=== PATIENT | male | born 1995 | race Caucasian/White ===

== ENCOUNTER 2020-04-06 11:04 | Emergency (ER) | payer SELFPAY ==
[2020-04-06 11:22] VITALS: BP 142/76; PULSE 89; RESP 18; TEMP 37.2; O2SAT 99; BMI 22.7
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
[2020-04-06 12:03] VITALS: BP 142/76; PULSE 89; RESP 18; TEMP 37.2; O2SAT 99
== END 2020-04-06 12:06 | disposition home or self-care (01) ==
PROVIDERS: Emergency Provider Nurse Practitioner
DX: Z20.828 Contact with and (suspected) exposure to other viral communicable diseases (principal)
CPT/HCPCS: 99201; U0003

== ENCOUNTER 2020-09-22 22:26 | Emergency (ER) | payer OTHER, SELFPAY ==
[2020-09-22 22:27] VITALS: BP 131/75; PULSE 89; RESP 18; O2SAT 98; BMI 20.5
[2020-09-22 22:56] VITALS: BP 130/76; PULSE 90; RESP 18; TEMP 37; O2SAT 99
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
[2020-09-22 23:16] LABS: Basophils % 0.5 % (0.1-2.0); Eosinophils # 0.1 K/mm3 (0.0-0.4); Eosinophils % 0.8 % (0.1-12.0); Hematocrit 43.2 % (42.0-52.0); Hemoglobin 14.2 g/dL (14.1-18.0); Lymphocytes # 2.4 K/mm3 (0.7-4.5); Lymphocytes % 33.2 % (10-50); Mean Corpuscular HGB Conc 32.7 g/dL (31.8-35.4); Mean Corpuscular Hemoglobin 28.8 pg (27.0-31.2); Mean Platelet Volume 8.3 fl (7.4-10.4); Monocytes # 0.5 K/mm3 (0.1-1.0); Monocytes % 7.2 % (1.7-9.3); Neutrophils # 4.3 K/mm3 (1.8-7.8); Neutrophils % 58.4 % (37.0-80.0); Platelet Count 269 K/mm3 (142-424); Red Blood Count 4.91 M/mm3 (4.60-6.20); Red Cell Distribution Width 12.8 % (11.5-17.5); White Blood Count 7.3 K/mm3 (4.8-10.8)
[2020-09-22 23:17] LABS: Ethyl Alcohol 14 mg/dl (0-10)
[2020-09-22 23:18] LABS: Alanine Aminotransferase 20 U/L (12-78); Albumin Level 5.1 g/dl (3.5-5.0); Albumin/Globulin Ratio 1.5 (1.1-1.8); Alkaline Phosphatase 68 U/L (38-126); Amylase 71 U/L (30-110); Anion Gap 13.1 mEq/L (5-15); Aspartate Amino Transferase 32 U/L (17-59); Bilirubin,Total 0.3 mg/dl (0.2-1.3); Blood Urea Nitrogen 12 mg/dl (9-20); Calcium 9.6 mg/dl (8.4-10.2); Carbon Dioxide 26 mmol/L (22.0-30.0); Chloride 105 mmol/L (98-107); Creatinine Clearance Estimated 109 mL/min (50-200); Estimated Glomerular Filt Rate 103 ml/min (>60); GFR (African American) 124 ML/MIN (>60); Globulin 3.4 g/dL (1.3-3.2); Glucose 95 mg/dl (74-100); Lipase 84 U/L (23-300); Potassium 3.1 mmoL/L (3.5-5.1); Sodium 141 mmol/L (136-145); Total Protein,Serum 8.5 g/dl (6.3-8.2)
[2020-09-22 23:23] LABS: C-Reactive Protein 1.8 mg/L (0-4)
[2020-09-22 23:34] LABS: Appearance,Urine CLEAR (Clear); Bilirubin,Urine Negative (Negative); Blood, Urine Negative (Negative); Color,Urine YELLOW (Yellow); Glucose,Urine (UA) Negative (Negative); Ketones,Urine Negative (Negative); Leukocyte Esterase,Urine Negative (Negative); Microscopic, Urine URINE MICROSCOPIC (MICROSCOPIC); Nitrate,Urine Negative (Negative); PH,Urine 6.5 (5.0-8.5); Protein,Urine Negative (Negative); Urobilinogen,Urine 0.2 EU/dl (0.2)
[2020-09-22 23:34] LABS: Procalcitonin 0.035 ng/mL (0.0-2.0)
[2020-09-22 23:48] LABS: WBC,Urine Occasional #/hpf (0-3)
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
[2020-09-23 00:06] LABS: Erythrocyte Sedimentation Rate 8 mm/hr (0-15)
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
[2020-09-23 01:00] VITALS: BP 137/81; PULSE 79; O2SAT 100
[2020-09-23 01:27] VITALS: BP 137/81; PULSE 87; RESP 18; TEMP 36.9; O2SAT 99
[2020-11-04 12:36] LABS: POC Glucose,Bedside 115 (70-110)
== END 2020-09-23 01:31 | disposition home or self-care (01) ==
PROVIDERS: Emergency Provider Emergency Medicine
DX: S06.0X0A Concussion without loss of consciousness, initial encounter (principal); S39.91XA Unspecified injury of abdomen, initial encounter; T07.XXXA Unspecified multiple injuries, initial encounter; V47.0XXA Car driver injured in collision with fixed or stationary object in nontraffic accident, initial encounter; Y92.488 Other paved roadways as the place of occurrence of the external cause
CPT/HCPCS: 70450; 71045; 72125; 73521; 73552; 73562; 73590; 73610; 73630; 74177; 80053; 81001; 82150; 82962; 83690; 84145; 85025; 85651; 86140; 99291; Q9967

== ENCOUNTER 2021-05-20 10:37 | Emergency (ER) | payer OTHER, SELFPAY ==
--- NOTE | 2021-05-20 10:37 | ECG_ITS ---
APPROVED REPORT Exam: Resting ECG HR:68 bpm ECG Measurements Heart Rate 68 AXES AL 120 P 1 QRSd 94 QRS 90 QT 378 T 44 QTc 401 Conclusion Normal sinus rhythm Rightward axis Incomplete right bundle branch block Borderline ECG Electronically signed by : José Palomares MD 05/21/2021 13:25:00
--- NOTE | 2021-05-20 10:41 | XR_ITS ---
PROCEDURE: XR CHEST PORTABLE CLINICAL HISTORY: cp COMPARISON: No exams were available for comparison FINDINGS: The cardiomediastinal silhouette and pulmonary vascularity are within normal limits. The lungs are clear without infiltrates, suspicious nodules, or pleural effusions. No acute bony abnormalities. IMPRESSION: No acute findings. Dictated by: Errol Alejandre MD 05/20/2021 11:38 Errol Alejandre MD in [facility] 05/20/2021 11:38
[2021-05-20 10:42] VITALS: BMI 24.2
--- NOTE | 2021-05-20 10:42 | HMH.EDCP ---
ED Disposition Clinical Impression: Atypical chest pain Disposition: Home, Self-Care Condition on Discharge: Good Instructions: DI for Atypical Chest Pain Additional Instructions: follow up PCP, return for worse Time of Disposition: 11:19 - Critical Care Critical Care Time: No Attestation: On , the high probability of a clinically significant, sudden or life threatening deterioration of the following system(s) required my full and direct attention, intervention and personal management. The time I documented below is in addition to time spent performing reported procedures but includes the following listed in this critical care notation. Medical Decision Making - Medical Records Medical records reviewed: Yes: I reviewed the patient's medical records. - Miguel Inquiry Pt receiving controlled substance: No Vital Signs: 05/20/21 10:49 05/20/21 11:00 Temperature 98.5 F Temperature Source Oral Pulse Rate 71 Pulse Rate [Left Radial] 69 Respiratory Rate 16 Blood Pressure 118/73 Blood Pressure [Right Arm] 139/81 Blood Pressure Mean [Right Arm] 100 Blood Pressure Source Automatic Cuff Blood Pressure Position Sitting 02 Sat by Pulse Oximetry 100 100 Oxygen Delivery Method Room Air Room Air - Lab Data Lab Results 05/20/21 10:41: WBC 5.5, RBC 5.25, Hgb 15.4, Hct 47.6, MCV 90.7, MCH 29.3, MCHC 32.3, RDW 13.3, Plt Count 274, MPV 8.9, Neut % (Auto) 66.5, Lymph % (Auto) 22.4, [place] % (Auto) 7.0, Eos % (Auto) 2.9, Baso % (Auto) 1.2, Neut # (Auto) 3.7, Lymph # (Auto) 1.2, [place] # (Auto) 0.4, Eos # (Auto) 0.2, Baso # (Auto) 0.1 05/20/21 10:41: Sodium 139, Potassium 3.9, Chloride 101, Carbon Dioxide 29, Anion Gap 12.9, BUN 17, Creatinine 0.80, Estimated Creat Clear 136, Estimated GFR 118, Est GFR ( Amer) 143, Glucose 104 H, Calcium 10.0, Total Bilirubin 0.4, AST 28, ALT 22, Alkaline Phosphatase 63, Troponin I < 0.01, Total Protein 8.2, Albumin 4.8, Globulin 3.4 H, Albumin/Globulin Ratio 1.4 Result diagrams: 05/20/21 10:41 05/20/21 10:41 Orders (Tests/Meds): ED MEDICATIONS Discontinued Medications Generic Name Dose Route Start Last Admin Trade Name [place] PREmely Reason Stop Dose Admin Aspirin 325 mg 05/20/21 10:41 05/20/21 10:47 Aspirin 325mg Tablet PO 05/20/21 10:42 Not Given ONCE ONE Aspirin 324 mg 05/20/21 10:46 05/20/21 10:47 Aspirin 81mg Chewable Tablet PO 05/20/21 10:47 324 mg ONCE ONE Administration ORDERS Category Date Time Status XR chest portable Stat Exams 05/20/21 10:41 Taken Troponin I Q3H Lab 05/20/21 13:45 Ordered Troponin I Q3H Lab 05/20/21 16:45 Ordered - ECG Data Tracing #1 ekg by ia nsr, irbbb, no st elev Chest Pain HPI - General Chief Complaint: Chest Pain Stated Complaint: chest pain Time Seen by Provider: 05/20/21 10:42 Mode of Arrival: Ambulatory Source of Information: Patient Limitations: No Limitations - History of Present Illness HPI narrative: says he woke up with nonspecific left sided cp this am, says he has been to his pcp for heart pain before Onset (ago): hour(s) Duration: intermittent Activity at onset: during rest Pain location: left chest Severity: moderate Pain radiation: none Relieving factors: nothing Exacerbating factors: nothing - Related Data Home Medications Medication Instructions Recorded Confirmed No Known Home Medications 09/22/20 09/22/20 Allergies Allergy/AdvReac Type Severity Reaction Status Date / Time No Known Allergies Allergy Verified 03/26/18 17:22 [facility] History - Hepatitis A Screen Attestation statement:: This patient has been screened for Hepatitis A risk factors. Medical History: Denies:: Cancer, Chronic Obstructive Pulmonary Disease (COPD), MRSA - Social History Smoking Status: Never smoker Alcohol Intake: never Occupational Status: employed Housing: house ROS Obtained: Yes All systems reviewed & no additional complaints Physical Exam
[2021-05-20 10:49] VITALS: BP 139/81; PULSE 69; RESP 16; TEMP 36.9; O2SAT 100; BMI 24.2
[2021-05-20 10:49] LABS: Basophils # 0.1 K/mm3 (0-0.2); Basophils % 1.2 % (0.1-2.0); Eosinophils # 0.2 K/mm3 (0.0-0.4); Eosinophils % 2.9 % (0.1-12.0); Hematocrit 47.6 % (42.0-52.0); Hemoglobin 15.4 g/dL (14.1-18.0); Lymphocytes # 1.2 K/mm3 (0.7-4.5); Lymphocytes % 22.4 % (10-50); Mean Corpuscular HGB Conc 32.3 g/dL (31.8-35.4); Mean Corpuscular Hemoglobin 29.3 pg (27.0-31.2); Mean Corpuscular Volume 90.7 fl (80-94); Mean Platelet Volume 8.9 fl (7.4-10.4); Monocytes # 0.4 K/mm3 (0.1-1.0); Neutrophils # 3.7 K/mm3 (1.8-7.8); Neutrophils % 66.5 % (37.0-80.0); Platelet Count 274 K/mm3 (142-424); Red Blood Count 5.25 M/mm3 (4.60-6.20); Red Cell Distribution Width 13.3 % (11.5-17.5); White Blood Count 5.5 K/mm3 (4.8-10.8)
[2021-05-20 10:54] LABS: Chloride 101 mmol/L (98-107); Sodium 139 mmol/L (136-145)
[2021-05-20 10:57] LABS: Alanine Aminotransferase 22 U/L (12-78); Alkaline Phosphatase 63 U/L (38-126); Aspartate Amino Transferase 28 U/L (17-59); Bilirubin,Total 0.4 mg/dl (0.2-1.3); Blood Urea Nitrogen 17 mg/dl (9-20); Carbon Dioxide 29 mmol/L (22.0-30.0); Creatinine Clearance Estimated 136 mL/min (50-200); Estimated Glomerular Filt Rate 118 ml/min (>60); GFR (African American) 143 ML/MIN (>60); Glucose 104 mg/dl (74-100)
[2021-05-20 10:58] LABS: Anion Gap 12.9 mEq/L (5-15); Potassium 3.9 mmoL/L (3.5-5.1)
[2021-05-20 11:00] VITALS: BP 118/73; PULSE 71; O2SAT 100
[2021-05-20 11:00] LABS: Albumin Level 4.8 g/dl (3.5-5.0); Albumin/Globulin Ratio 1.4 (1.1-1.8); Globulin 3.4 g/dL (1.3-3.2); Total Protein,Serum 8.2 g/dl (6.3-8.2)
[2021-05-20 11:14] LABS: Troponin I < 0.01 ng/ml (0.00-0.034)
[2021-05-20 11:25] VITALS: BP 118/73; PULSE 69; RESP 17; TEMP 36.9; O2SAT 99
== END 2021-05-20 11:26 | disposition home or self-care (01) ==
PROVIDERS: Emergency Provider Emergency Medicine; PCP Family Medicine
DX: R07.89 Other chest pain (principal)
CPT/HCPCS: 71045; 80053; 84484; 85025; 93005; 99283

== ENCOUNTER 2021-05-22 11:38 | Emergency (ER) | payer OTHER, SELFPAY ==
[2021-05-22 13:15] VITALS: BP 117/70; PULSE 75; RESP 18; TEMP 36.8; O2SAT 99; BMI 23.5
--- NOTE | 2021-05-22 13:53 | HMH.EDUTC ---
[facility] [place] Disposition Clinical Impression: Strep throat Disposition: Home, Self-Care Condition on Discharge: Good Instructions: DI for Strep Throat, Strep Throat, Amoxicillin Additional Instructions: *Monitor Temp, Over the counter Motrin or Tylenol as directed/as needed Tylenol every 4 hours and Motrin every 6 hours (as long as your family doctor has told you that you can take it) for fever or pain. and straight to ER if unable to lower temp less than 101.0 after medication given *Warm salt water gargles may help to soothe the throat *Throat Lozenges *Warm fluids like tea with honey may help to soothe the throat *Sleep elevated *Humidifier/Vaporizer *If you did not take Penicillin shot or was unable to, start taking antibiotic immediately and make sure that you take it for the FULL length of time although you should start to feel better in 24-48 hours *change toothbrush and toothpaste 24-48 hours after starting to take antibiotics so you do not reinfect yourself Monitor Temp. Tylenol and/or Ibuprofen as needed. ER if fever is no less than 101 despite alternating Tylenol and Ibuprofen * Encourage fluids, water, Gatorade, powerade, pedialyte if /toddler/or child *Cold fluids, popsicles and ice cream may feel good on his throat Follow up IMMEDIATELY for new or worsening symptoms or no Noticeable improvement over the next 48-72 hours. 911 for difficulty breathing or swallowing You were tested for today for COVID19 your test result should be back in the next 24-48 hours, you may check your results on the [facility] My Health Portal if you have trouble logging on you may call You was given a handout with instructions for Self Quarantine and Self isolation for while you wait on test results and what to do if they are positive If you are positive the Health Dept will be contacting you also Make sure to take your Vitamins Vit. C Vit D and Zinc if you can take them Prescriptions: Amoxicillin [Amoxicillin 500mg Cap] 500 mg PO TID #30 cap Transmission Status: Pending to [facility] Ondansetron [Zofran 4mg ODT] 4 mg PO TIDP PRN #12 tab PRN Reason: Nausea Transmission Status: Pending to [facility] Referrals: Kristin Baltazar DO [Primary Care Provider] - As needed Forms: Work/School Release Time of Disposition: 14:17 Medical Decision Making - Miguel Inquiry Pt receiving controlled substance: No Miguel was queried for this patient: No Vital Signs: 05/22/21 13:15 Temperature 98.3 F Temperature Source Oral Pulse Rate [Left] 75 Respiratory Rate 18 Blood Pressure [Right Arm] 117/70 Blood Pressure Mean [Right Arm] 85 02 Sat by Pulse Oximetry 99 - Lab Data Lab results reviewed: Yes: I reviewed the patient's lab results. Lab Results 05/22/21 14:07: Influenza Type A Ag Negative, Influenza Type B Ag Negative 05/22/21 14:07: Strep Scn Rapid Clinic Positive A Orders (Tests/Meds): ORDERS Category Date Time Status Covid-19 Nasal PCR ([facility]) Routine Lab 05/22/21 14:07 Ordered [facility] UTC HPI - General Stated complaint: chills/body aches, vomiting, h/a Time Seen by Provider: 05/22/21 13:53 Mode of Arrival: Ambulatory Source of Information: Patient Limitations: No Limitations Description of Symptoms (Recalled from Triage Doc. by RN): pt c/o n/v, chills, ELDER and stomach ache. HEENT Symptoms (Recalled from RN notes): Yes (ELDER) Resp Symptoms (Recalled from RN notes): No Skin Symptoms (Recalled from RN notes): No MS Symptoms (Recalled from RN notes): No Functional Status (Recalled from RN notes): wnl - History of Present Illness Provider Complaint: Patient states that for the last several days he has been having sore throat, body aches, chills, and nausea and vomiting States that he feels like he has the flu or something States that he was seen several days ago for chest pain but that feels better and no longer having chest pain - Related Data Previous Rx's Medication Instructions Recorded [place]
[2021-05-22 14:08] LABS: UTC Strep Screen (Rapid) Positive (Negative)
[2021-05-22 14:09] LABS: UTC Influenza A Antigen Negative (Negative)
[2021-05-22 14:10] LABS: UTC Influenza B Antigen Negative (Negative)
[2021-05-22 14:25] VITALS: BP 117/70; PULSE 75; RESP 18; TEMP 36.8
== END 2021-05-22 14:32 | disposition home or self-care (01) ==
LOC: ER 11:49 → UTC 11:49
PROVIDERS: Emergency Provider Nurse Practitioner; PCP Family Medicine
DX: J02.0 Streptococcal pharyngitis (principal); U07.1 COVID-19
CPT/HCPCS: 87804; 87880; 99203; C9803; G0463; U0003; U0005

== ENCOUNTER 2021-08-05 15:26 | Emergency (ER) | payer OTHER, SELFPAY ==
[2021-08-05 16:05] VITALS: BP 135/77; PULSE 78; RESP 18; TEMP 37; O2SAT 98
--- NOTE | 2021-08-05 16:18 | HMH.EDUTC ---
[facility] [place] Clinical Impression: Encounter for screening for COVID-19 Disposition: Home, Self-Care Condition on Discharge: Good Instructions: Preventing the Spread of Coronavirus Discharge Instructions Additional Instructions: Drink plenty of fluids. Follow up with your regular doctor. GO TO THE ER FOR ANY WORSENING SYMPTOMS Referrals: Kristin Baltazar DO [Primary Care Provider] - Time of Disposition: 16:22 Medical Decision Making - Medical Records Medical records reviewed: No: I reviewed the patient's medical records. - Miguel Inquiry Pt receiving controlled substance: No Vital Signs: 08/05/21 16:05 Temperature 98.6 F Temperature Source Oral Pulse Rate [Left] 78 Respiratory Rate 18 Blood Pressure [Right Arm] 135/77 Blood Pressure Mean [Right Arm] 96 02 Sat by Pulse Oximetry 98 Orders (Tests/Meds): ORDERS Category Date Time Status Covid-19 Nasal PCR ([facility]) Routine Lab 08/05/21 15:50 Received [facility] [place]PI - General Stated complaint: covid test Time Seen by Provider: 08/05/21 16:18 Mode of Arrival: Ambulatory Source of Information: Patient Limitations: No Limitations Description of Symptoms (Recalled from Triage Doc. by RN): pt needs a covid test for work. HEENT Symptoms (Recalled from RN notes): No Resp Symptoms (Recalled from RN notes): No Skin Symptoms (Recalled from RN notes): No MS Symptoms (Recalled from RN notes): No Functional Status (Recalled from RN notes): wnl - History of Present Illness Provider Complaint: he is here because his employer wants him to be tested for covid-19. He denies any symptoms. - Related Data Previous Rx's Medication Instructions Recorded Amoxicillin [Amoxicillin 500mg 500 mg PO TID #30 cap 05/22/21 Cap] Ondansetron [Zofran 4mg ODT] 4 mg PO TIDP PRN #12 tab 05/22/21 Allergies Allergy/AdvReac Type Severity Reaction Status Date / Time No Known Allergies Allergy Verified 03/26/18 17:22 - Worker's Comp Is this a Worker's Comp case?: No [facility] History - Hepatitis A Screen Drug use history?: No High risk sexual behaviors?: No History of sexually transmitted infection?: No Currently employed?: No Childcare worker?: No Do you have indoor plumbing?: Yes Do you have electricity?: Yes Attestation statement:: This patient has been screened for Hepatitis A risk factors. I have reviewed the patient's past medical history: Yes Medical History: Denies:: Cancer, Chronic Obstructive Pulmonary Disease (COPD), MRSA - Social History Smoking Status: Never smoker Alcohol Intake: never Occupational Status: employed Housing: house ROS Obtained: Yes All systems reviewed & no additional complaints - Constitutional Constitutional: Reports system reviewed and no additional complaints, except as docu - Eyes Eyes: Reports system reviewed and no additional complaints, except as docu - ENT Ears, Nose, Mouth, and Throat: Reports system reviewed and no additional complaints, except as docu - Cardiovascular Cardiovascular: Reports system reviewed and no additional complaints, except as docu - Respiratory Respiratory: Reports system reviewed and no additional complaints, except as docu - Gastrointestinal Gastrointestingal: Reports: system reviewed and no additional complaints, except as docu Physical Exam - General General appearance: alert, in no apparent distress - Head Head exam: atraumatic, normocephalic, normal inspection - Eye Eye exam: Present: normal appearance, PERRL, EOMI - ENT ENT exam: Present: normal exam, normal oropharynx, mucous membranes moist, TM's normal bilaterally, normal external ear exam - Neck Neck exam: Present: normal inspection, full ROM, trachea midline. Absent: meningismus, lymphadenopathy - Chest Chest inspection: Present: normal inspection, symmetric chest wall rise. Absent: tenderness - Respiratory Respiratory exam: Present: normal lung sounds bilaterally. Absen
[2021-08-05 16:29] VITALS: BP 135/77; PULSE 78; RESP 18; TEMP 37; O2SAT 98
== END 2021-08-05 16:29 | disposition home or self-care (01) ==
PROVIDERS: Emergency Provider Nurse Practitioner Family; PCP Family Medicine
DX: Z03.89 Encounter for observation for other suspected diseases and conditions ruled out (principal); Z20.822 Contact with and (suspected) exposure to COVID-19
CPT/HCPCS: 99212; C9803; G0463; U0003; U0005

== ENCOUNTER 2021-08-23 16:11 | Emergency (ER) | payer OTHER, SELFPAY ==
[2021-08-23 16:15] VITALS: BP 125/63; PULSE 83; RESP 18; TEMP 37; O2SAT 99; BMI 19.6
--- NOTE | 2021-08-23 16:35 | HMH.EDUTC ---
[facility] [place] Clinical Impression: Nausea & vomiting Qualifiers: Vomiting type: unspecified Qualified Code(s): R11.2 - Nausea with vomiting, unspecified Diarrhea Qualifiers: Diarrhea type: unspecified type Qualified Code(s): R19.7 - Diarrhea, unspecified Disposition: Home, Self-Care Condition on Discharge: Good Instructions: Diarrhea (Alternative Therapy), Nausea and Vomiting-Adult Additional Instructions: Monitor temperature. Seek treatment if fever develops. Follow-up immediately if new or worse symptoms worsen or no noticeable improvement over 48 hours. Increase fluids such as water, Gatorade, Powerade, juice or Pedialyte with limited formula/dietary in children No food is okay as long as you are drinking. Once ready to eat start bland such as bananas, rice, applesauce, toast. Contagious until no diarrhea, vomiting, fever times 48 hours without medication Avoid antidiarrheals unless told otherwise. Best to let the virus run its course. Follow-up immediately for new or worsening symptoms or no noticeable improvement over the next 48 hours. Prescriptions: Ondansetron [Zofran 4mg ODT] 4 mg PO TIDP PRN 3 Days #12 tab PRN Reason: Nausea Prescription Printed Referrals: Kristin Baltazar DO [Primary Care Provider] - Forms: Work/School Release Time of Disposition: 16:57 Medical Decision Making - Miguel Inquiry Pt receiving controlled substance: No Vital Signs: 08/23/21 16:15 Temperature 98.6 F Temperature Source Oral Pulse Rate [Right Brachial] 83 Respiratory Rate 18 Blood Pressure [Right Arm] 125/63 Blood Pressure Mean [Right Arm] 83 Blood Pressure Source [Right Arm] Automatic Cuff Blood Pressure Position [Right Arm] Sitting 02 Sat by Pulse Oximetry 99 Oxygen Delivery Method Room Air - Lab Data Lab Results 08/23/21 16:40: Group A Strep Rapid Negative Orders (Tests/Meds): ORDERS Category Date Time Status Strep Screen Confirmation Stat Micro 08/23/21 16:40 Received [facility] [place] HPI - General Chief complaint: [facility] Stated complaint: diahrea, nausea Time Seen by Provider: 08/23/21 16:40 Mode of Arrival: Ambulatory Source of Information: Patient Limitations: No Limitations Description of Symptoms (Recalled from Triage Doc. by RN): PATIENT C/O DIARRHEA, HEADACHE, AND CONGESTION X 2 DAYS HEENT Symptoms (Recalled from RN notes): Yes Resp Symptoms (Recalled from RN notes): No Skin Symptoms (Recalled from RN notes): No MS Symptoms (Recalled from RN notes): No Functional Status (Recalled from RN notes): WNL - History of Present Illness Provider Complaint: 26 yr old male presents for diarreha,nausea and herron for 2 days. pt denies any other symptoms - Related Data Previous Rx's Medication Instructions Recorded Ondansetron [Zofran 4mg ODT] 4 mg PO TIDP PRN 3 Days #12 tab 08/23/21 Allergies Allergy/AdvReac Type Severity Reaction Status Date / Time No Known Allergies Allergy Verified 03/26/18 17:22 - Worker's Comp Is this a Worker's Comp case?: No [facility] History - Hepatitis A Screen Drug use history?: No High risk sexual behaviors?: No History of sexually transmitted infection?: No Currently employed?: No Childcare worker?: No Do you have indoor plumbing?: Yes Do you have electricity?: Yes Attestation statement:: This patient has been screened for Hepatitis A risk factors. I have reviewed the patient's past medical history: Yes Medical History: Denies:: Cancer, Chronic Obstructive Pulmonary Disease (COPD), MRSA - Social History Smoking Status: Never smoker Alcohol Intake: never Occupational Status: employed Housing: house ROS Obtained: Yes Systems reviewed as appropriate & no additional complaints - Constitutional Constitutional: Reports system reviewed and no additional complaints, except as docu, Denies body ache, Denies chills, Denies fever(s) - Eyes Eyes: Reports system reviewed and no additional complaints, except as docu, De
[2021-08-23 16:55] VITALS: BP 125/63; PULSE 83; RESP 18; TEMP 37; O2SAT 99
[2021-08-23 16:55] LABS: Strep Scrn Group A (Rapid) Negative (Negative)
== END 2021-08-23 16:58 | disposition home or self-care (01) ==
PROVIDERS: Emergency Provider Nurse Practitioner Family; PCP Family Medicine
DX: R11.2 Nausea with vomiting, unspecified (principal); R19.7 Diarrhea, unspecified; R51.9 Headache, unspecified
CPT/HCPCS: 87430; 99213; G0463

== ENCOUNTER 2022-03-10 18:22 | Emergency (ER) | payer OTHER, SELFPAY ==
--- NOTE | 2022-03-10 18:20 | ECG_ITS ---
APPROVED REPORT Exam: Resting ECG HR:73 bpm ECG Measurements Heart Rate 73 AXES MA 139 P 51 QRSd 103 QRS 83 QT 380 T 54 QTc 405 Conclusion SINUS RHYTHM INCOMPLETE RIGHT BUNDLE BRANCH BLOCK [90+ ms QRS DURATION, TERMINAL R IN V1/V2, 40+ ms S IN I/aVL/V4/V5/V6] BORDERLINE ECG UNCONFIRMED REPORT Electronically signed by : José Palomares MD 03/10/2022 20:48:10
[2022-03-10 18:22] VITALS: BP 138/72; PULSE 68; RESP 18; TEMP 36.6; O2SAT 100; BMI 22.6
--- NOTE | 2022-03-10 18:23 | XR_ITS ---
PROCEDURE INFORMATION: Exam: XR Chest Exam date and time: 03/10/2022 6:38 PM Age: 26 years old Clinical indication: Left-sided and other: Pain in left and center of chest; Additional info: Chest pain TECHNIQUE: Imaging protocol: Radiologic exam of the chest. Views: 1 view. COMPARISON: CR XR CHEST PORTABLE 05/20/2021 10:58 AM FINDINGS: Lungs: Unremarkable. No consolidation. Pleural spaces: Unremarkable. No pleural effusion. No pneumothorax. Heart/Mediastinum: Unremarkable. No cardiomegaly. Bones/joints: Unremarkable. IMPRESSION: No acute findings.
[2022-03-10 18:36] LABS: Basophils # 0.1 K/mm3 (0-0.2); Basophils % 1.1 % (0.1-2.0); Eosinophils # 0.2 K/mm3 (0.0-0.4); Eosinophils % 2.5 % (0.1-12.0); Hematocrit 44.9 % (42.0-52.0); Hemoglobin 14.9 g/dL (14.1-18.0); Lymphocytes # 2.3 K/mm3 (0.7-4.5); Lymphocytes % 25.2 % (10-50); Mean Corpuscular HGB Conc 33.2 g/dL (31.8-35.4); Mean Corpuscular Hemoglobin 29.6 pg (27.0-31.2); Mean Corpuscular Volume 89.1 fl (80-94); Mean Platelet Volume 8.8 fl (7.4-10.4); Monocytes # 0.4 K/mm3 (0.1-1.0); Monocytes % 4.8 % (1.7-9.3); Neutrophils % 66.4 % (37.0-80.0); Platelet Count 314 K/mm3 (142-424); Red Blood Count 5.04 M/mm3 (4.60-6.20); Red Cell Distribution Width 12.9 % (11.5-17.5); White Blood Count 9.1 K/mm3 (4.8-10.8)
[2022-03-10 18:40] LABS: Chloride 98 mmol/L (98-107); Potassium 3.9 mmoL/L (3.5-5.1); Sodium 138 mmol/L (136-145)
[2022-03-10 18:43] LABS: Anion Gap 13.9 mEq/L (5-15); Blood Urea Nitrogen 12 mg/dl (9-20); Calcium 9.1 mg/dl (8.4-10.2); Carbon Dioxide 30 mmol/L (22.0-30.0); Creatinine Clearance Estimated 126 mL/min (50-200); Estimated Glomerular Filt Rate 117 ml/min (>60); GFR (African American) 141 ML/MIN (>60); Glucose 100 mg/dl (74-100)
[2022-03-10 19:00] LABS: Troponin I < 0.01 ng/ml (0.00-0.034)
--- NOTE | 2022-03-10 20:16 | HMH.EDCP ---
Discharge Plan Disposition Patient Disposition: Home, Self-Care Condition: Fair Chief Complaint: Chest Pain Prescriptions Prescriptions: No Action ondansetron 4 MG tablet,disintegrating 4 mg PO TIDP PRN (Reason: Nausea) 3 Days Qty: 12 0RF Referrals Follow up/Referrals: Kristin Baltazar DO [Primary Care Provider] - See instructions Clinical Impressions Clinical Impression: Chest pain, Anterior pleuritic pain Instructions Patient Instructions: DI for Pleurisy Discharge ED Provider: Brendan Escobar Chest Pain HPI General Chief Complaint: Chest Pain Stated Complaint: CHEST PAIN Time Seen by Provider: 03/10/22 19:00 Mode of Arrival: Ambulatory Source of Information: Patient Limitations: No Limitations Description of Symptoms (Recalled from ER Triage Doc. by RN): PT REPORT CHEST PAIN, LEFT UPPER CHEST THAT STARTED TODAY ABOUT 1600. HAS HAD LEFT ARM PAIN X 1 WEEK, SEEN BY PCP FOR ARM PAIN. REPORTS NAUSEA X 30 MINUTES History of Present Illness HPI narrative: Patient is a 26-year-old male who presents with concern for chest pain. No pertinent past medical history. He states that around 4 PM earlier today he had acute onset of left-sided chest pain. He says about a week ago he had some left arm pain and was diagnosed with some fluid around his shoulder. He says in the past he had similar symptoms that self resolved. He says his pain is little bit worse with deep inspiration. He describes it as a dull ache. It does not radiate from there. Denies any shortness of breath. Pain is not changed with movement. Not relieved with leaning forward. No recent illnesses. No nausea or diaphoresis. Related Data Previous Rx's Medication Instructions Recorded ondansetron 4 mg disintegrating 4 mg PO TIDP PRN Nausea 3 days #12 08/23/21 tablet tabs Allergies Allergy/AdvReac Type Severity Reaction Status Date / Time No Known Allergies Allergy Verified 03/26/18 17:22 PFSH PFS Social History Smoking Status: Never smoker alcohol intake: never current occupational status: employed Travel in the last 8 weeks: None housing: house ROS Obtained: Yes All systems reviewed & no additional complaints except as documented A 14 point review of system was obtained and otherwise negative except per HPI Physical Exam General General appearance: alert and in no apparent distress Head Head exam: atraumatic, normocephalic and normal inspection Eye Eye exam: Present normal appearance, PERRL and EOMI ENT ENT exam: Present normal exam, normal oropharynx, mucous membranes moist, TM's normal bilaterally and normal external ear exam Neck Neck exam: Present normal inspection, full ROM and trachea midline; Absent meningismus or lymphadenopathy Chest Chest inspection: Present normal inspection and symmetric chest wall rise; Absent tenderness Respiratory Respiratory exam: Present normal lung sounds bilaterally; Absent respiratory distress Cardiovascular Cardiovascular exam: Present regular rate and normal rhythm; Absent JVD Abdominal Exam Abdominal exam: Present soft and normal bowel sounds; Absent distention, tenderness or guarding Extremities Exam Extremities exam: Present normal inspection, full ROM and normal capillary refill; Absent calf tenderness Back Exam Back exam: Present normal inspection; Absent tenderness Neurological Exam Neurological exam: Present alert and oriented X3 Psychiatric Psychiatric exam: Present normal affect and normal mood Skin Skin exam: Present warm, dry, intact and normal color Lymphatic Lymphatic Findings: no adenopathy Medical Decision Making Medical Records Medical records reviewed: Yes I reviewed the patient's medical records. Miguel Inquiry Pt receiving controlled substance: No Vital Signs: 03/10/22 18:22 Temperature 97.9 F Temperature Source Oral Pulse Rate [Radial] 68 Respiratory Rate 18 Blood Pressure [Right Arm] 138/72 Blood Pressure Mean [Right Arm] 94 Blo
[2022-03-10 20:27] VITALS: BP 135/75; PULSE 68; PULSE 72; RESP 18; TEMP 36.6; O2SAT 99
== END 2022-03-10 20:30 | disposition home or self-care (01) ==
PROVIDERS: Emergency Provider Student in an Organized Health Care Education/Training Program; PCP Family Medicine
DX: R07.81 Pleurodynia (principal); M79.602 Pain in left arm; R11.0 Nausea; Z79.899 Other long term (current) drug therapy
CPT/HCPCS: 71045; 80048; 84484; 85025; 93005; 99213; 99284; G0463

== ENCOUNTER 2022-07-15 18:16 | Emergency (ER) | payer OTHER, SELFPAY ==
--- NOTE | 2022-07-15 18:27 | ECG_ITS ---
APPROVED REPORT Exam: Resting ECG HR:79 bpm ECG Measurements Heart Rate 79 AXES AR 135 P 41 QRSd 102 QRS 78 QT 355 T 49 QTc 390 Conclusion SINUS RHYTHM INCOMPLETE RIGHT BUNDLE BRANCH BLOCK [90+ ms QRS DURATION, TERMINAL R IN V1/V2, 40+ ms S IN I/aVL/V4/V5/V6] BORDERLINE ECG UNCONFIRMED REPORT Electronically signed by : José Palomares MD 07/15/2022 20:45:14
[2022-07-15 18:28] VITALS: BMI 23.3
--- NOTE | 2022-07-15 18:53 | XR_ITS ---
PROCEDURE INFORMATION: Exam: XR Chest Exam date and time: 07/15/2022 7:11 PM Age: 26 years old Clinical indication: Other: Syncope TECHNIQUE: Imaging protocol: Radiologic exam of the chest. Views: 1 view. COMPARISON: CR XR CHEST PORTABLE 03/10/2022 6:38 PM FINDINGS: Lungs: Unremarkable. No consolidation. Pleural spaces: Unremarkable. No pleural effusion. No pneumothorax. Heart/Mediastinum: Unremarkable. No cardiomegaly. Bones/joints: Unremarkable. IMPRESSION: No acute findings.
[2022-07-15 19:00] VITALS: BP 130/75; PULSE 84; RESP 17; TEMP 36.5; O2SAT 100; BMI 23.3
[2022-07-15 19:02] LABS: Chloride 103 mmol/L (98-107); Potassium 3.2 mmoL/L (3.5-5.1); Sodium 139 mmol/L (136-145)
[2022-07-15 19:04] LABS: Blood Urea Nitrogen 12 mg/dl (9-20); Creatinine Clearance Estimated 116 mL/min (50-200); Estimated Glomerular Filt Rate 102 ml/min (>60); GFR (African American) 123 ML/MIN (>60)
[2022-07-15 19:05] LABS: Alanine Aminotransferase 28 U/L (12-78); Albumin Level 4.9 g/dl (3.5-5.0); Albumin/Globulin Ratio 1.4 (1.1-1.8); Alkaline Phosphatase 63 U/L (38-126); Anion Gap 12.2 mEq/L (5-15); Aspartate Amino Transferase 29 U/L (17-59); Bilirubin,Total 0.3 mg/dl (0.2-1.3); Calcium 9.1 mg/dl (8.4-10.2); Carbon Dioxide 27 mmol/L (22.0-30.0); Globulin 3.6 g/dL (1.3-3.2); Glucose 134 mg/dl (74-100); Total Protein,Serum 8.5 g/dl (6.3-8.2)
[2022-07-15 19:13] LABS: Basophils # 0.1 K/mm3 (0-0.2); Basophils % 1.4 % (0.1-2.0); Eosinophils # 0.2 K/mm3 (0.0-0.4); Eosinophils % 2.7 % (0.1-12.0); Hematocrit 46.4 % (42.0-52.0); Hemoglobin 14.9 g/dL (14.1-18.0); Lymphocytes # 2.3 K/mm3 (0.7-4.5); Lymphocytes % 37.2 % (10-50); Mean Corpuscular HGB Conc 32.1 g/dL (31.8-35.4); Mean Corpuscular Volume 90.4 fl (80-94); Mean Platelet Volume 8.6 fl (7.4-10.4); Monocytes # 0.4 K/mm3 (0.1-1.0); Monocytes % 6.2 % (1.7-9.3); Neutrophils # 3.3 K/mm3 (1.8-7.8); Neutrophils % 52.5 % (37.0-80.0); Platelet Count 353 K/mm3 (142-424); Red Blood Count 5.14 M/mm3 (4.60-6.20); Red Cell Distribution Width 13.1 % (11.5-17.5); White Blood Count 6.3 K/mm3 (4.8-10.8)
[2022-07-15 19:20] LABS: Troponin I < 0.01 ng/ml (0.00-0.034)
--- NOTE | 2022-07-15 19:57 | PC.NURSE ---
Rounded on patient; pt does not need anything at this time.
[2022-07-15 20:00] VITALS: BP 119/77; PULSE 76; RESP 16; O2SAT 100
--- NOTE | 2022-07-15 20:26 | HMH.EDDIZZ ---
Discharge Plan Disposition Patient Disposition: Home, Self-Care Prescriptions Prescriptions: No Action ondansetron 4 MG tablet,disintegrating 4 mg PO TIDP PRN (Reason: Nausea) 3 Days Qty: 12 0RF Referrals Follow up/Referrals: Kristin Baltazar DO [Primary Care Provider] - See instructions Activity Restrictions/Add. Instructions Additional Instructions/Restrictions: Return for dizziness nausea or any concerns within 8 hours. Follow up with your doctor in next few days. Clinical Impressions Clinical Impression: Syncope Instructions Patient Instructions: DI for Syncope in Adults (Fainting), DI for Syncope in Children (Fainting) Discharge ED Provider: Black [place] HPI General Chief Complaint: Syncope Stated Complaint: fainted 1800, out 3 min, hit face Time Seen by Provider: 07/15/22 20:10 Mode of Arrival: Family Vehicle Source of Information: Patient Limitations: No Limitations Description of Symptoms (Recalled from ER Triage Doc. by RN): Pt c/o a syncopal episode while at home @ 1800 today. Recently, he experienced an episode of vomiting while at work on 07/12 and nosebleed the day before (07/11). No recent fall, trauma, or syncopal episodes. History of Present Illness HPI Narrative: 26 yo M presents with syncope event. He was at home after 2nd shift and passed out at 6pm today. He has no current cp, soa, headache numbness weakness or tingling. No hx early deaths in family. No cardiac history. He had no fever. He had one episode of vomiting yesterday. No diarrhea. No abdominal pain. He has appetitite now but had not eaten before falling. MD complaint: dizziness Onset (ago): hour(s) Related Data Previous Rx's Medication Instructions Recorded ondansetron 4 mg disintegrating 4 mg PO TIDP PRN Nausea 3 days #12 08/23/21 tablet tabs Allergies Allergy/AdvReac Type Severity Reaction Status Date / Time No Known Allergies Allergy Verified 03/26/18 17:22 [facility] Disclaimer: The information contained in this section may have been updated after the patient was seen, as this information can be updated by other users. Social History Smoking Status: Current every day smoker alcohol intake: never current occupational status: employed Travel in the last 8 weeks: None housing: house ROS Obtained: Yes All systems reviewed & no additional complaints except as documented Constitutional Constitutional: Denies anorexia, Denies body ache, Denies headache(s) and Denies weakness Eyes Eyes: Denies diplopia and Denies itchy eyes ENT Ears, Nose, Mouth, and Throat: Denies headache(s), Denies lip swelling and Denies vertigo Cardiovascular Cardiovascular: Denies diaphoresis and Denies dyspnea Respiratory Respiratory: Denies cough and Denies dyspnea Gastrointestinal Gastrointestingal: Denies constipation or nausea Genitourinary Male Genitourinary: Denies flank pain Musculoskeletal Musculoskeletal: Denies joint stiffness and Denies tingling Integumentary/Breasts Skin/Breast: Denies redness and Denies sores Neurologic Neurologic: Denies headache(s), Denies sensory deficit, Denies tingling, Denies vertigo and Denies weakness Allergic/Immunologic Allergic/Immunologic: Denies itchy eyes and Denies lip swelling Physical Exam General General appearance: alert and in no apparent distress Eye Eye exam: Present PERRL and EOMI ENT ENT exam: Present normal exam and normal oropharynx Neck Neck exam: Present normal inspection Chest Chest inspection: Present symmetric chest wall rise Respiratory Respiratory exam: Present normal lung sounds bilaterally; Absent respiratory distress Cardiovascular Cardiovascular exam: Present regular rate, normal rhythm and normal heart sounds; Absent bradycardia, tachycardia, irregular rhythm, systolic murmur or diastolic murmur Abdominal Exam Abdominal exam: Present soft; Absent distention, tenderness, guarding, rebound, Hamilton's sign or tenderness at [place] Rectal
[2022-07-15 20:30] VITALS: BP 124/73; RESP 17; O2SAT 100
[2022-07-15 20:50] VITALS: BP 124/73; PULSE 73; RESP 16; TEMP 36.8; O2SAT 98
== END 2022-07-15 20:52 | disposition home or self-care (01) ==
PROVIDERS: Emergency Provider Emergency Medicine; PCP Family Medicine
DX: R55 Syncope and collapse (principal); F17.210 Nicotine dependence, cigarettes, uncomplicated
CPT/HCPCS: 71045; 80053; 84484; 85025; 93005; 99285

== ENCOUNTER 2023-01-15 17:02 | Emergency (ER) | payer OTHER, SELFPAY ==
[2023-01-15 17:02] VITALS: BP 132/75; PULSE 71; RESP 17; TEMP 36.9; O2SAT 98; BMI 23.1
--- NOTE | 2023-01-15 17:41 | EXP.UTC ---
Discharge Plan Disposition Patient Disposition: Home, Self-Care Condition: Good Prescriptions Prescriptions: New ondansetron 4 mg Tablet,Disintegrating 4 mg PO Q8H PRN (Reason: Nausea) Qty: 12 0RF No Action ondansetron 4 MG tablet,disintegrating 4 mg PO TIDP PRN (Reason: Nausea) 3 Days Qty: 12 0RF Referrals Follow up/Referrals: Kristin Baltazar DO [Primary Care Provider] - See instructions Activity Restrictions/Add. Instructions Additional Instructions/Restrictions: Drink plenty of fluids. Water or an electrolyte drink (like gatoreade) would be best. Take tylenol for pain or fever. Take the medications as directed. Follow up with your regular doctor. GO TO THE ER FOR ANY WORSENING SYMPTOMS Clinical Impressions Clinical Impression: Gastroenteritis Stand Alone Forms Stand Alone Forms: Work/School Release Instructions Patient Instructions: Viral Gastroenteritis, DI for Viral Gastroenteritis -- Adult, Ondansetron Discharge ED Provider: Macho David [facility] General Stated complaint: vomiting Time Seen by Provider: 01/15/23 17:41 History of Present Illness Provider Complaint: He states that since yesterday he has had n/v/d. He denies abdominal pain,. Related Data Previous Rx's Medication Instructions Recorded ondansetron 4 mg disintegrating 4 mg PO TIDP PRN Nausea 3 days #12 08/23/21 tablet tabs ondansetron 4 mg disintegrating 4 mg PO Q8H PRN Nausea #12 tabs 01/15/23 tablet Allergies Allergy/AdvReac Type Severity Reaction Status Date / Time No Known Allergies Allergy Verified 03/26/18 17:22 [facility] Disclaimer: The information contained in this section may have been updated after the patient was seen, as this information can be updated by other users. Social History Smoking Status: Current every day smoker alcohol intake: never current occupational status: employed Travel in the last 8 weeks: None housing: house ROS Obtained: Yes All systems reviewed & no additional complaints except as documented Constitutional Constitutional: Denies chills, Denies fever(s) and Reports poor appetite ENT Ears, Nose, Mouth, and Throat: Denies dizziness and Denies sore throat Cardiovascular Cardiovascular: Denies dyspnea Respiratory Respiratory: Denies chest congestion, Denies cough and Denies dyspnea Musculoskeletal Musculoskeletal: Denies arthralgias Integumentary/Breasts Skin/Breast: Denies rash Neurologic Neurologic: Denies dizziness Physical Exam General General appearance: alert and in no apparent distress Head Head exam: atraumatic and normocephalic Eye Eye exam: Present normal appearance, PERRL and EOMI ENT ENT exam: Present normal exam, normal oropharynx, mucous membranes moist, TM's normal bilaterally and normal external ear exam Neck Neck exam: Present normal inspection, full ROM and trachea midline; Absent tenderness, meningismus or lymphadenopathy Chest Chest inspection: Present normal inspection and symmetric chest wall rise; Absent tenderness, rash or abscess Respiratory Respiratory exam: Present normal lung sounds bilaterally; Absent respiratory distress, wheezes or stridor Cardiovascular Cardiovascular exam: Present regular rate and normal rhythm; Absent irregular rhythm, systolic murmur, diastolic murmur or JVD Abdominal Exam Abdominal exam: Present soft and hyperactive bowel sounds; Absent distention, tenderness, guarding, rebound, rigidity, psoas sign, obturator sign, heel tap sign, Hamilton's sign, Rovsing's sign or tenderness at McBurney's Point Extremities Exam Extremities exam: Present normal inspection and full ROM; Absent tenderness Back Exam Back exam: Present normal inspection and full ROM; Absent tenderness, CVA tenderness (R) or CVA tenderness (L) Neurological Exam Neurological exam: Present alert, oriented X3 and CN II-XII intact Psychiatric Psychiatric exam: Present normal affect and normal mood Skin Skin exam: Present warm,
[2023-01-15 18:38] VITALS: BP 132/75; PULSE 71; RESP 17; TEMP 36.9; O2SAT 98
== END 2023-01-15 18:39 | disposition home or self-care (01) ==
PROVIDERS: Emergency Provider Nurse Practitioner Family; PCP Family Medicine
DX: K52.9 Noninfective gastroenteritis and colitis, unspecified (principal); R11.2 Nausea with vomiting, unspecified; F17.210 Nicotine dependence, cigarettes, uncomplicated
CPT/HCPCS: 99212; 99214; G0463

== ENCOUNTER 2023-08-11 19:13 | Emergency (ER) | payer BC, SELFPAY ==
[2023-08-11 19:25] VITALS: BP 123/74; PULSE 81; RESP 19; TEMP 36.7; O2SAT 99; BMI 26.8
--- NOTE | 2023-08-11 19:47 | EXP.UTC ---
Discharge Plan Disposition Patient Disposition: Home, Self-Care Condition: Good Prescriptions Prescriptions: New meclizine 25 mg tablet 25 mg PO TID PRN (Reason: dizziness) Qty: 15 0RF Referrals Follow up/Referrals: Kristin Baltazar DO [Primary Care Provider] - See instructions Activity Restrictions/Add. Instructions Additional Instructions/Restrictions: Slow steady movements for the next few days When going from sitting to standing make sure to stand for a few minutes before taking steps to help prevent you from falling Take the Meclizine as prescribed and do not take any more of the Over the counter Motion sickness pill you purchased with this medication Make sure to drink plenty of fluids Straight to the ER if any life threatening symptoms Follow up with your Family Doctor if dizziness continues or does not improve Do not work around or operate heavy machinery, drive, swim, walk on edges of large hills etc while having dizzy spells Clinical Impressions Clinical Impression: Dizziness Stand Alone Forms Stand Alone Forms: Work/School Release Instructions Patient Instructions: Vertigo, DI for Vertigo, Meclizine Discharge ED Provider: Nila Ritchie [facility] General Stated complaint: dizzy Mode of Arrival: Ambulatory Source of Information: Patient Limitations: No Limitations Time Seen by Provider: 08/11/23 19:47 Description of Symptoms (Recalled from Triage Doc. by RN): PATIENT C/O DIZZINESS FOR PAST 2 HOURS HEENT Symptoms (Recalled from RN notes): Yes Resp Symptoms (Recalled from RN notes): No Skin Symptoms (Recalled from RN notes): No MS Symptoms (Recalled from RN notes): No Functional Status (Recalled from RN notes): WNL History of Present Illness Provider Complaint: Patient states that about two hours ago he noticed when he would change positions from sitting to standing he would get dizzy and feel like the room was spinning around him States that he took an OTC motion sickness pill but didnt help much States that he is still having some dizziness when he changes positions and moves so he came in Related Data Previous Rx's Medication Instructions Recorded meclizine 25 mg tablet 25 mg PO TID PRN dizziness #15 tabs 08/11/23 Allergies Allergy/AdvReac Type Severity Reaction Status Date / Time No Known Allergies Allergy Verified 03/26/18 17:22 Worker's Comp Is this a Worker's Comp case?: No [facility] Disclaimer: The information contained in this section may have been updated after the patient was seen, as this information can be updated by other users. Medical History (Updated 08/11/23 @ 20:05 by Nila Ritchie APRN) No significant past medical history Social History Smoking Status: Current every day smoker alcohol intake: never current occupational status: employed Travel in the last 8 weeks: None housing: house ROS Obtained: Yes All systems reviewed & no additional complaints except as documented and Yes Systems reviewed as appropriate & no additional complaints except as documented Constitutional Constitutional: Reports system reviewed and no additional complaints, except as documented, Reports as per HPI, Denies body ache, Denies chills, Denies fever(s) and Denies headache(s) Eyes Eyes: Reports system reviewed and no additional complaints, except as documented, Reports as per HPI, Denies blind spots, Denies blurry vision, Denies diplopia, Denies eye discharge, Denies loss of vision, Denies eye pain and Denies photophobia ENT Ears, Nose, Mouth, and Throat: Reports system reviewed and no additional complaints, except as documented, Reports as per HPI, Denies abnormal hearing, Reports dizziness, Denies ear discharge, Denies otalgia, Denies headache(s) and Denies sore throat Cardiovascular Cardiovascular: Reports system reviewed and no additional complaints, except as documented, Reports as per HPI, Denies chest pain, Denies chest pain at rest, Denies dyspnea and Denies edema Respiratory Respiratory: Reports system reviewed and no additional complaints, except as documented, Reports as per HPI, Denies shortness of breath and Denies dyspnea Gastrointestinal Gastrointestingal: Reports system reviewed and no additional complaints, except as documented and as per HPI Musculoskeletal Musculoskeletal: Reports system reviewed and no additional complaints, except as documented and Reports as per HPI Neurologic Neurologic: Reports system reviewed and no additional complaints, except as documented, Reports as per HPI, Denies abnormal hearing, Denies abnormal movements, Denies abnormal speech, Denies behavioral changes, Denies confusion, Denies convulsions, Reports dizziness, Denies headache(s), Denies loss of vision and Denies other visual disturbances Physical Exam General General appearance: alert and in no apparent distress Eye Eye exam: Present normal appearance, PERRL and EOMI ENT ENT exam: Present normal exam, normal oropharynx and mucous membranes moist Expanded ENT Exam TM/Canal exam: Bilateral TM: bulging (small amount of clear fluid noted) Respiratory Respiratory exam: Present normal lung sounds bilaterally; Absent respiratory distress or wheezes Cardiovascular Cardiovascular exam: Present regular rate, normal rhythm and normal heart sounds Neurological Exam Neurological exam: Present alert, oriented X3 and normal gait Medical Decision Making Miguel Inquiry Pt receiving controlled substance: No Miguel was queried for this patient: No Vital Signs: 08/11/23 19:25 Temperature 98.0 F Temperature Source Oral Pulse Rate [Left Brachial] 81 Respiratory Rate 19 Blood Pressure [Left Arm] 123/74 Blood Pressure Mean [Left Arm] 90 Blood Pressure Source [Left Arm] Automatic Cuff Blood Pressure Position [Left Arm] Sitting 02 Sat by Pulse Oximetry 99 Oxygen Delivery Method Room Air Medical Decision Narrative: medications discussed with pharmacy Discussed transfer to the ED for further work up an evaluation and patient declined States that medication is working some and wanted to try medication and see if it helps and if not will F/U with PCp tomorrow or Wednesday and return to the ED if symptom worsen
[2023-08-11 19:59] VITALS: BP 123/74; PULSE 81; RESP 19; TEMP 36.7; O2SAT 99
[2023-08-11] MEDS: MECLIZINE 25MG TABLET 25 MG PO (19:59)
== END 2023-08-11 20:24 | disposition home or self-care (01) ==
PROVIDERS: Emergency Provider Nurse Practitioner; PCP Family Medicine
DX: R42 Dizziness and giddiness (principal); F17.200 Nicotine dependence, unspecified, uncomplicated
CPT/HCPCS: 99212; 99214; G0463

== ENCOUNTER 2023-08-16 15:59 | Emergency (ER) | payer BC, SELFPAY ==
[2023-08-16 16:10] VITALS: BP 104/81; PULSE 89; RESP 18; TEMP 37.7; O2SAT 99; BMI 23.2
--- NOTE | 2023-08-16 16:26 | EXP.UTC ---
Discharge Plan Disposition Patient Disposition: Home, Self-Care Condition: Good Prescriptions Prescriptions: New pseudoephedrine HCl [Sudafed 12 Hour] 120 mg tablet extended release 120 mg PO Q12H PRN (Reason: nasal congestion) Qty: 20 0RF No Action meclizine 25 mg tablet 25 mg PO TID PRN (Reason: dizziness) Qty: 15 0RF fluticasone propionate [Flonase Allergy Relief] 50 mcg/actuation spray,suspension 2 spray intranasal DAILY Qty: 16 0RF Rx Instructions: administer into each nostril daily Referrals Follow up/Referrals: Kristin Baltazar DO [Primary Care Provider] - See instructions Activity Restrictions/Add. Instructions Additional Instructions/Restrictions: *Monitor Temp, Over the counter Motrin or Tylenol as directed/as needed Tylenol every 4 hours and Motrin every 6 hours (as long as your family doctor has told you that you can take it) for fever or pain. and straight to ER if unable to lower temp less than 101.0 after medication given *Warm salt water gargles may help to soothe the throat *Throat Lozenges? *Warm fluids like tea with honey may help to soothe the throat? *Sleep elevated *Humidifier/Vaporizer *Flonase 2 sprays in each nostril daily but be aware that it may take 2-3 days before you notice improvement Follow up IMMEDIATELY for new or worsening symptoms or no Noticeable improvement over the next 48-72 hours. 911 for difficulty breathing or swallowing You were tested for today for Upper Respiratory Panel with COVID19 your test result should be back in the next 24hours, you may check your results on the [facility] if your COVID/Flu positive you may return to work when fever free for 24hrs without taking any medication Clinical Impressions Clinical Impression: Viral syndrome Stand Alone Forms Stand Alone Forms: Work/School Release Instructions Patient Instructions: DI for Viral Syndrome Discharge ED Provider: Nila Ritchie [facility] General Stated complaint: fever, dizzy Mode of Arrival: Ambulatory Source of Information: Patient Limitations: No Limitations Time Seen by Provider: 08/16/23 16:26 Description of Symptoms (Recalled from Triage Doc. by RN): PATIENT C/O FEVER, CHILLS, DIZZINESS, AND BILATERAL EAR PAIN SINCE YESTERDAY HEENT Symptoms (Recalled from RN notes): Yes Resp Symptoms (Recalled from RN notes): No Skin Symptoms (Recalled from RN notes): No MS Symptoms (Recalled from RN notes): No Functional Status (Recalled from RN notes): WNL History of Present Illness Provider Complaint: Patient states he started feeling bad yesterday States he has been having body aches, chills, headache and bilateral ear pain and pressure States that today he has had a low grade fever and still not feeling well and achy all over so he came in to get checked Related Data Previous Rx's Medication Instructions Recorded fluticasone propionate 50 2 spray intranasal DAILY #16 grams 08/11/23 mcg/actuation nasal spray,suspension (Flonase Allergy Relief) meclizine 25 mg tablet 25 mg PO TID PRN dizziness #15 tabs 08/11/23 pseudoephedrine HCl 120 mg 120 mg PO Q12H PRN nasal 08/16/23 tablet,extended release (Sudafed congestion #20 tabs 12 Hour) Allergies Allergy/AdvReac Type Severity Reaction Status Date / Time No Known Allergies Allergy Verified 03/26/18 17:22 Worker's Comp Is this a Worker's Comp case?: No [facility] Disclaimer: The information contained in this section may have been updated after the patient was seen, as this information can be updated by other users. Medical History (Updated 08/16/23 @ 16:39 by Nila Ritchie APRN) No significant past medical history Social History Smoking Status: Current every day smoker alcohol intake: never current occupational status: employed Travel in the last 8 weeks: None housing: house ROS Obtained: Yes All systems reviewed & no additional complaints except as documented and Yes Systems reviewed as appropriate & no additional complaints except as documented Constitutional Constitutional: Reports system reviewed and no additional complaints, except as documented, Reports as per HPI, Reports body ache, Reports fever(s) and Reports headache(s) ENT Ears, Nose, Mouth, and Throat: Reports system reviewed and no additional complaints, except as documented, Reports as per HPI, Reports otalgia, Reports headache(s) and Reports nasal congestion Cardiovascular Cardiovascular: Reports system reviewed and no additional complaints, except as documented and Reports as per HPI Respiratory Respiratory: Reports system reviewed and no additional complaints, except as documented and Reports as per HPI Gastrointestinal Gastrointestingal: Reports system reviewed and no additional complaints, except as documented and as per HPI Neurologic Neurologic: Reports headache(s) Physical Exam General General appearance: alert and in no apparent distress ENT ENT exam: Present mucous membranes moist Expanded ENT Exam TM/Canal exam: Bilateral TM: bulging (clear fluid noted) Nose exam: Absent sinus tenderness Respiratory Respiratory exam: Present normal lung sounds bilaterally; Absent respiratory distress or wheezes Cardiovascular Cardiovascular exam: Present regular rate, normal rhythm and normal heart sounds Abdominal Exam Abdominal exam: Present soft and normal bowel sounds; Absent distention or tenderness Neurological Exam Neurological exam: Present alert, oriented X3 and normal gait Medical Decision Making Miguel Inquiry Pt receiving controlled substance: No Miguel was queried for this patient: No Vital Signs: 08/16/23 16:10 Temperature 99.8 F H Temperature Source Oral Pulse Rate [Left Brachial] 89 Respiratory Rate 18 Blood Pressure [Left Arm] 104/81 L Blood Pressure Mean [Left Arm] 88 Blood Pressure Source [Left Arm] Automatic Cuff Blood Pressure Position [Left Arm] Sitting 02 Sat by Pulse Oximetry 99 Oxygen Delivery Method Room Air Lab Data Lab results reviewed: Yes I reviewed the patient's lab results.
[2023-08-16 16:29] LABS: UTC Influenza A Antigen Negative (Negative); UTC Influenza B Antigen Negative (Negative)
[2023-08-16 16:40] VITALS: BP 104/81; PULSE 89; RESP 18; TEMP 37.7; O2SAT 99
[2023-08-16 16:56] LABS: Adenovirus,PCR Not Detected (NotDetected); Coronavirus 229E Not Detected (NotDetected); Coronavirus NL63 Not Detected (NotDetected); Coronavirus OC43 Not Detected (NotDetected); Coronovirus HKU1,PCR Not Detected (NotDetected); Human Metapneumovirus Not Detected (NotDetected); Influenza A, PCR Not Detected (NotDetected); Influenza AH1, 2009 Not Detected (NotDetected); Influenza AH1, PCR Not Detected (NotDetected); Influenza AH3,PCR Not Detected (NotDetected); Influenza B, PCR Not Detected (NotDetected); Parainfluenza 1, PCR Not Detected (NotDetected); Parainfluenza 2, PCR Not Detected (NotDetected); Parainfluenza 3, PCR Not Detected (NotDetected); Parainfluenza 4, PCR Not Detected (NotDetected); Respiratory Syncytial Virus Not Detected (NotDetected); Rhinovirus/Enterovirus Not Detected (NotDetected)
[2023-08-16 19:08] LABS: Coronavirus 19, PCR Detected (NotDetected)
== END 2023-08-16 16:53 | disposition home or self-care (01) ==
PROVIDERS: Emergency Provider Nurse Practitioner; PCP Family Medicine
DX: U07.1 COVID-19 (principal); R50.9 Fever, unspecified; R51.9 Headache, unspecified; H92.03 Otalgia, bilateral; R09.81 Nasal congestion; F17.210 Nicotine dependence, cigarettes, uncomplicated
CPT/HCPCS: 87632; 87635; 87804; 99212; 99214; G0463

== ENCOUNTER 2024-08-26 12:49 | Emergency (ER) | payer BC, SELFPAY ==
[2024-08-26 13:00] VITALS: BP 124/69; PULSE 96; RESP 14; TEMP 36.9; O2SAT 96; BMI 21.8
[2024-08-26] MEDS: ONDANSETRON 4MG ODT 4 MG SL (13:06)
--- NOTE | 2024-08-26 13:08 | ED_ITS ---
<Statement entered by Kacey Napier DO - 08/26/24 16:15> I was consulted by the K[facility], and we discussed the complexity of the problems being addressed. I approved the treatment and management plan for this patient's care in the emergency department, thus performing a substantive portion of the medical decision making. With benign abdominal exam and no localizable pain, low concern for surgical intra-abdominal pathology. Symptomatic improvement achieved with Zofran and patient discharged in stable condition. Kacey Napier DO Discharge Plan Disposition Patient Disposition: Home, Self-Care Condition: Good Prescriptions Prescriptions: New ondansetron 4 mg tablet,disintegrating 4 mg PO Q8H PRN (Reason: nausea and vomiting) Qty: 7 0RF No Action meclizine 25 mg tablet 25 mg PO TID PRN (Reason: dizziness) Qty: 15 0RF fluticasone propionate [Flonase Allergy Relief] 50 mcg/actuation spray,suspension 2 spray intranasal DAILY Qty: 16 0RF Rx Instructions: administer into each nostril daily pseudoephedrine HCl [Sudafed 12 Hour] 120 mg tablet extended release 120 mg PO Q12H PRN (Reason: nasal congestion) Qty: 20 0RF Referrals Follow up/Referrals: Kristin Baltazar DO [Primary Care Provider] - See instructions Activity Restrictions/Add. Instructions Additional Instructions/Restrictions: Monitor temperature. Seek treatment if fever develops. Follow-up immediately if new or worse symptoms worsen or no noticeable improvement over 48 hours. Increase fluids such as water, Gatorade, Powerade, juice or Pedialyte with limited formula/dietary in children No food is okay as long as you are drinking. Once ready to eat start bland such as bananas, rice, applesauce, toast. Contagious until no diarrhea, vomiting, fever times 48 hours without medication Avoid antidiarrheals unless told otherwise. Best to let the virus run its course. Follow-up immediately for new or worsening symptoms or no noticeable improvement over the next 48 hours. Clinical Impressions Clinical Impression: Diarrhea, Nausea & vomiting Instructions Patient Instructions: DI for Nausea -- Adult, Nausea and Vomiting-Adult Print Language Print Language: [place] Discharge ED Provider: Kacey Napier General Adult HPI General Chief complaint: Nausea/Vomiting/Diarrhea Stated complaint: vomiting Time Seen by Provider: 08/26/24 12:58 Mode of Arrival: Ambulatory Source of Information: Patient Description of Symptoms (Recalled from ER Triage Doc. by RN): patient states since lastnight he has had upper abdominal pain vomting diarhea bodyaches and chills. states his does havethe flu History of Present Illness HPI narrative: 29-year-old male presents for nausea vomiting and diarrhea, upper abdominal pain, body aches, and chills that started last night. is positive with the flu Related Data Previous Rx's ?Medication ?Instructions ?Recorded fluticasone propionate 50 2 spray intranasal DAILY #16 grams 08/11/23 mcg/actuation nasal spray,suspension (Flonase Allergy Relief) meclizine 25 mg tablet 25 mg PO TID PRN dizziness #15 tabs 08/11/23 pseudoephedrine HCl 120 mg 120 mg PO Q12H PRN nasal 08/16/23 tablet,extended release (Sudafed congestion #20 tabs 12 Hour) ondansetron 4 mg disintegrating 4 mg PO Q8H PRN nausea and 08/26/24 tablet vomiting #7 tabs Allergies Allergy/AdvReac Type Severity Reaction Status Date / Time No Known Allergies Allergy Verified 08/26/24 13:18 [facility] Disclaimer: The information contained in this section may have been updated after the patient was seen, as this information can be updated by other users. Medical History (Updated 08/26/24 @ 13:59 by Pepper Henderson ([facility]), DANCE HISTORIAN) No significant past medical history Social History Smoking Status: Never smoker alcohol intake: never current occupational status: employed Travel in the last 8 weeks: None housing: house Have you lived/traveled outside [place] in past 30 days?: No Contact w/someone who lives/traveled outside [place] past 30 days?: No Exposure to someone with infectious disease in past 14 days?: No Do you have a fever (greater than 100.4 F or 38 C)?: No Have you tested positive for COVID-19: No Exposed to someone with COVID-19 in past 14 days?: No Do you have a sore throat?: No Do you have a cough?: No Do you have any weakness?: No Do you have any diarrhea?: No Are you experiencing any unusual bleeding?: No Do you have any muscle aches/pain?: No Do you have any abdominal pain?: No Are you experiencing loss of taste or smell?: No Other Medical History Have you received the Flu Vaccine for this season: No Have you received the Pneumonia Vaccine: No ROS Obtained: Yes Systems reviewed as appropriate & no additional complaints except as documented Constitutional Constitutional: Reports system reviewed and no additional complaints, except as documented, Reports as per HPI, Reports body ache and Reports chills Gastrointestinal Gastrointestingal: Reports system reviewed and no additional complaints, except as documented, as per HPI, diarrhea, nausea and vomiting Physical Exam General General appearance: alert and in no apparent distress Eye Eye exam: Present normal appearance and PERRL ENT ENT exam: Present normal exam Respiratory Respiratory exam: Present normal lung sounds bilaterally Cardiovascular Cardiovascular exam: Present regular rate and normal rhythm Abdominal Exam Abdominal exam: Present soft and normal bowel sounds; Absent distention, tenderness or guarding Neurological Exam Neurological exam: Present alert and oriented X3 Skin Skin exam: Present warm and intact Medical Decision Making Medical Records Medical records reviewed: Yes I reviewed the patient's medical records. Screening: Per USPSTF and CDC recommendations, given the prevalence of disease in our region, it is our hospital?s policy to screen for HIV and viral Hepatitis for all patients aged 18 and over and those with ongoing risk factors. Miguel Inquiry Pt receiving controlled substance: No Miguel was queried for this patient: No Vital Signs: 08/26/24 13:00 Temperature 98.5 F Temperature Source Oral Pulse Rate [Right] 96 H Respiratory Rate 14 Blood Pressure [Right Arm] 124/69 Blood Pressure Mean [Right Arm] 87 Blood Pressure Source [Right Arm] Automatic Cuff Blood Pressure Position [Right Arm] Sitting 02 Sat by Pulse Oximetry 96 Oxygen Delivery Method Room Air Lab Data Lab results reviewed: Yes I reviewed the patient's lab results. Lab Results 08/26/24 13:08: SARS-CoV-2 (PCR) Not detected, Influenza A Untype (PCR) Not detected, Influenza Type B (PCR) Not detected Orders (Tests/Meds): ED MEDICATIONS Discontinued Medications Generic Name Dose Route Start Last Admin Trade Name Freq PRN Reason Stop Dose Admin Ondansetron HCl 4 mg 08/26/24 12:59 08/26/24 13:06 Ondansetron 4mg Odt SL 08/26/24 13:00 4 mg ONCE ONE Administration ORDERS Category Date Time Status Rapid PCR Covid and Flu A/B Stat Lab 08/26/24 13:08 Completed Medical Decision Narrative: In summary patient is a 29-year-old male who presents to the emergency department for evaluation of nausea, vomiting, diarrhea, body aches, chills. Patient is hemodynamically stable upon arrival, afebrile. Unremarkable physical exam. Differential diagnosis includes gastritis, flu, viral syndrome. Initial workup will be conducted with flu swab negative,. Initial inventions include Zofran given for nausea and vomiting patient was able to drink a lemon [place] soda without any issues and was able to keep it down. Initial workup reviewed by me flu swab negative. Upon repeat evaluation patient was able to keep down liquids. Given this patient appropriate for discharge at this time will discharge home with some Zofran to help with nausea. Critical Care Critical Care Time Critical Care Time: No
[2024-08-26 13:12] LABS: Coronavirus 19, PCR Not Detected (NotDetected); Influenza A, PCR Not Detected (NotDetected); Influenza B, PCR Not Detected (NotDetected)
[2024-08-26 14:04] VITALS: BP 126/80; PULSE 85; RESP 15; TEMP 36.9
--- OUTSIDE RECORDS SUMMARY | 2024-08-31 19:48 | XMS_ITS | Data Portability ---
Author Organization [place] - [facility] Address [address] [place] [address] Care Team Providers Care Investigative Analyst Name Role Phone ANNETTE KHANNA Primary Care Provider [phone] Assessment No assessment recorded. Plan of Treatment Reminders Order Date Submit Date Provider Last Modified By Organization Details Last Modified Time Details Appointments None recorded. Lab CMP, serum or plasma 2023 024 [facility] ([facility]), [address] [facility], [place], [address], 4 16:45:04 hepatitis panel (A+B+C), acute, serum [address] ([facility]), [address] [facility], [place], [address], 4 08:06:13 amylase + lipase, serum [address] ([facility]), [address] [facility], [place], [address], 4 08:06:14 CMP, serum or plasma 2023 024 [facility], [address] [facility], [place], [address], 4 17:51:08 CBC w/ auto diff 2023 024 [facility], [address] [facility], [place], [address], 4 17:28:27 TSH, serum or plasma [address] Lab Registration, [address] [facility], [place], [address], 4 07:03:58 lipid panel, serum [address] Lab Registration, [address] [facility], [place], [address], 4 07:03:59 magnesium, serum or plasma [address] Lab Registration, [address] [facility], [place], [address], 4 07:03:58 Referral cardiologis t referral - referred to Dr. Isis Price 2023 024 [facility] Isis Price MD, [address], [place], [address], 4 08:07:14 Procedures None recorded. Surgeries None recorded. Imaging electrocard iogram 2023 024 [email or web address] 40 [facility], [address] [place] [address], [address], 4 16:34:03 XR, shoulder 2021 022 ROBIN [facility], [address] [place] [address], [place], [address], 2 14:37:33 Medication Orders fexofenadin e 180 mg tablet [address] [facility] [address] [facility], [address] [facility], [address], [place], [address], 4 13:16:27 Patient TargetsNo targets recorded. Patient Instructions Encounter Date Encounter Id Patient Instructions Last Modified By Organization Details Last Modified Time 07/16/2022 [id number] long discussion regarding dietary changes. If he has another issue of near-syncope or syncope will proceed with Neurological workup in addition to what was done in the emergency room. [email or web address] Not available 07/16/2022 16:31:25 08/12/2023 [id number] continue with meclizine. Labs drawn. EKG in a resting position shows an overall sinus. He does have some rightward axis deviation. Elevated T-wave in V1. No ST segment elevations or depressions. Ventricular rate is 73. In a bent forward position his heart rate elevates up to 105. No ectopy. No changes in the complexes. [email or web address] Not available 08/12/2023 16:36:43 08/13/2023 [id number] he has a cholesterol of 303. Because he has elevated liver testing unable to treat it at this time. We did discuss possible infusion of medication. Will recheck his labs in 3 weeks. If his enzymes as well as cholesterol are still elevated will proceed with treatment. Next office visit whom we draw labs will also check hepatitis panel as well as amylase and lipase. Continue to follow with cardiology for his tachycardia and dizziness. 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 Isis Price Referring Physician: Edinson Lozada, Family Medicine, Encounter Date: 08/12/2023 Results Created Date Observation Date Name Description Value Unit Range Abnormal Flag Note LastModifiedBy Organization Detail LastModifiedTime 08/12/19 24 08/12/2023 CBC WITH AUTO DIFF WBC 6.2 10 4.5-11 .5 Not Available [facility] (Lab) [address] [facility], [place], [address], 08/12/2023 17:28:27 08/12/19 24 08/12/2023 CBC WITH AUTO DIFF RBC 5.53 10 4.60-6 .00 Not Available [facility] (Lab) [address] [facility], [place], [address], 08/12/2023 17:28:27 08/12/19 24 08/12/2023 CBC WITH AUTO DIFF hemoglobin 16.0 g/dL 14.0-1 8.0 Not Available [facility] (Lab) [address] [facility], [place], [address], 08/12/2023 17:28:27 08/12/19 24 08/12/2023 CBC WITH AUTO DIFF hematocrit 46.4 % 40.0-5 4.0 Not Available [facility] (Lab) [address] [facility], [place], [address], 08/12/2023 17:28:27 08/12/19 24 08/12/2023 CBC WITH AUTO DIFF MCV 83.9 fL 80-100 Not Available [facility] (Lab) [address] [facility], [place], [address], 08/12/2023 17:28:27 08/12/19 24 08/12/2023 CBC WITH AUTO DIFF MCH 28.9 pg 26-32 Not Available [facility] (Lab) [address] [facility], [place], [address], 08/12/2023 17:28:27 08/12/19 24 08/12/2023 CBC WITH AUTO DIFF MCHC 34.5 g/dL 32-36 Not Available [facility] (Lab) [address] [facility], [place], [address], 08/12/2023 17:28:27 08/12/19 24 08/12/2023 CBC WITH AUTO DIFF RDW 12.6 % 11.5-1 4.5 Not Available [facility] (Lab) [address] [facility], [place], [address], 08/12/2023 17:28:27 08/12/19 24 08/12/2023 CBC WITH AUTO DIFF platelet count 330 10 150-45 0 Not Available [facility] (Lab) [address] [facility], [place], [address], 08/12/2023 17:28:27 08/12/19 24 08/12/2023 CBC WITH AUTO DIFF mean platelet volume 9.9 fL 6.8-10 .2 Not Available [facility] (Lab) [address] [facility], [place], [address], 08/12/2023 17:28:27 08/12/19 24 08/12/2023 CBC WITH AUTO DIFF manual differential NOT INDICA CINDA Not Available [facility] (Lab) [address] [facility], [place], [address], 08/12/2023 17:28:27 08/12/19 24 08/12/2023 CBC WITH AUTO DIFF ne% 50.6 % 50-70 Not Available [facility] (Lab) [address] [facility], [place], [address], 08/12/2023 17:28:27 08/12/19 24 08/12/2023 CBC WITH AUTO DIFF lymphs 34.0 % 18-42 Not Available [facility] (Lab) [address] [facility], [place], [address], 08/12/2023 17:28:27 08/12/19 24 08/12/2023 CBC WITH AUTO DIFF MO% 9.7 % 2-11 Not Available [facility] (Lab) [address] [facility], [place], [address], 08/12/2023 17:28:27 08/12/19 24 08/12/2023 CBC WITH AUTO DIFF eo% 5.2 % 1-3 high Not Available [facility] (Lab) [address] [facility], [place], [address], 08/12/2023 17:28:27 08/12/19 24 08/12/2023 CBC WITH AUTO DIFF ba% 0.5 % 0.0-2. 0 Not Available [facility] (Lab) [address] [facility], [place], [address], 08/12/2023 17:28:27 08/12/19 24 08/12/2023 CBC WITH AUTO DIFF neutrophils (absolute) 3.1 K/uL 2.0-6. 9 Not Available [facility] (Lab) [address] [place] [address] [place], [address], 08/12/2023 17:28:27 08/12/19 24 08/12/2023 CBC WITH AUTO DIFF lymphocytes (absolute) 2.1 K/uL 0.6-3. 4 Not Available [facility] (Lab) [address] [place] [address] [place], [address], 08/12/2023 17:28:27 08/12/19 24 08/12/2023 CBC WITH AUTO DIFF monocytes (absolute) 0.6 K/uL 0.0-0. 9 Not Available [facility] (Lab) [address] [place] [address] [place], [address], 08/12/2023 17:28:27 08/12/19 24 08/12/2023 CBC WITH AUTO DIFF eosinophils (absolute) 0.3 K/uL 0.0-0. 7 Not Available [facility] (Lab) [address] [place] [address] [place], [address], 08/12/2023 17:28:27 08/12/19 24 08/12/2023 CBC WITH AUTO DIFF basophils (absolute) 0.0 K/uL 0.0-0. 2 Not Available [facility] (Lab) [address] [place] [address] [place], [address], 08/12/2023 17:28:27 08/12/19 24 08/12/2023 COMPR EHENS BERNARD METAB OLIC PANEL sodium 138 mmol/ L 136-14 5 Not Available [facility] (Lab) [address] [place] [address] [place], [address], 08/12/2023 17:51:08 08/12/19 24 08/12/2023 COMPR EHENS BERNARD METAB OLIC PANEL potassium 3.7 mmol/ L 3.5-5. 1 Not Available [facility] (Lab) [address] [place] [address] [place], [address], 08/12/2023 17:51:08 08/12/19 24 08/12/2023 COMPR EHENS BERNARD METAB OLIC PANEL chloride 99 mmol/ L 98.0-1 07.0 Not Available [facility] (Lab) [address] [facility], [place], [address], 08/12/2023 17:51:08 08/12/19 24 08/12/2023 COMPR EHENS BERNARD METAB OLIC PANEL total CO2 31 mmol/ L 21-32 Not Available [facility] (Lab) [address] [facility], [place], [address], 08/12/2023 17:51:08 08/12/19 24 08/12/2023 COMPR EHENS BERNARD METAB OLIC PANEL anion gap 11.7 mmol/ L 5.0-15 .0 Not Available [facility] (Lab) [address] [facility], [place], [address], 08/12/2023 17:51:08 08/12/19 24 08/12/2023 COMPR EHENS BERNARD METAB OLIC PANEL glucose 106 mg/dL 70-120 Not Available [facility] (Lab) [address] [facility], [place], [address], 08/12/2023 17:51:08 08/12/19 24 08/12/2023 COMPR EHENS BERNARD METAB OLIC PANEL BUN 15 mg/dL 7-18 Not Available [facility] (Lab) [address] [facility], [place], [address], 08/12/2023 17:51:08 08/12/19 24 08/12/2023 COMPR EHENS BERNARD METAB OLIC PANEL creatinine 0.9 mg/dL 0.8-1. 3 Not Available [facility] (Lab) [address] [facility], [place], [address], 08/12/2023 17:51:08 08/12/19 24 08/12/2023 COMPR EHENS BERNARD METAB OLIC PANEL BUN/creatini ne ratio 16.7 ratio 9-21 Not Available [facility] (Lab) [address] [facility], [place], [address], 08/12/2023 17:51:08 08/12/19 24 08/12/2023 COMPR EHENS BERNARD METAB OLIC PANEL estimated glom filtration rate >60 mL/mi n 60.0- Not Available [facility] (Lab) [address] [facility], [place], [address], 08/12/2023 17:51:08 08/12/19 24 08/12/2023 COMPR EHENS BERNARD METAB OLIC PANEL calcium 10.3 mg/dL 8.6-9. 8 high Not Available [facility] (Lab) [address] [place] [address] [place], [address], 08/12/2023 17:51:08 08/12/19 24 08/12/2023 COMPR EHENS BERNARD METAB OLIC PANEL bilirubin, total 0.2 mg/dL 0.2-1. 0 USE OF THIS ASSAY IS NOT RECOM KOLBY D FOR PATIE NTS UNDER GOING TREAT MENT WITH ELTRO MBOPA G DUE TO THE POTEN TIAL FOR FALSE LY ELEVA CINDA RESUL TS. Not Available [facility] (Lab) [address] [place] [address] [place], [address], 08/12/2023 17:51:08 08/12/19 24 08/12/2023 COMPR EHENS BERNARD METAB OLIC PANEL AST (SGOT) 26 IU/L 15-37 Not Available [facility] (Lab) [address] [facility], [place], [address], 08/12/2023 17:51:08 08/12/19 24 08/12/2023 COMPR EHENS BERNARD METAB OLIC PANEL ALT (SGPT) 82 IU/L 12-78 high Not Available [facility] (Lab) [address] [facility], [place], [address], 08/12/2023 17:51:08 08/12/19 24 08/12/2023 COMPR EHENS BERNARD METAB OLIC PANEL alk phos 76 IU/L 46-116 Not Available [facility] (Lab) [address] [facility], [place], [address], 08/12/2023 17:51:08 08/12/19 24 08/12/2023 COMPR EHENS BERNARD METAB OLIC PANEL total protein 9.3 g/dL 6.4-8. 2 high Not Available [facility] (Lab) [address] [facility], [place], [address], 08/12/2023 17:51:08 08/12/19 24 08/12/2023 COMPR EHENS BERNARD METAB OLIC PANEL albumin 4.4 g/dL 3.4-5. 0 Not Available [facility] (Lab) [address] [place] [address] [place], [address], 08/12/2023 17:51:08 08/12/19 24 08/12/2023 COMPR EHENS BERNARD METAB OLIC PANEL globulin 4.9 g/dL 1.3-3. 5 high Not Available [facility] (Lab) [address] [facility], [place], [address], 08/12/2023 17:51:08 08/12/19 24 08/12/2023 COMPR EHENS BERNARD METAB OLIC PANEL alb/glob ratio 0.9 ratio 1.0-3. 9 low Not Available [facility] (Lab) [address] [facility], [place], [address], 08/12/2023 17:51:08 08/12/19 24 08/12/2023 COMPR EHENS BERNARD METAB OLIC PANEL osmolality, calculated 277 mOsm/ kg 272-29 5 Not Available [facility] (Lab) [address] [facility], [place], [address], 08/12/2023 17:51:08 08/12/19 24 08/12/2023 LIPID PANEL triglyceride s 155 mg/dL 1-150 high Not Available [facility] (Lab) [address] [facility], [place], [address], 08/12/2023 17:51:10 08/12/19 24 08/12/2023 LIPID PANEL cholesterol 306 mg/dL 0-200 high Not Available [facility] (Lab) [address] [facility], [place], [address], 08/12/2023 17:51:10 08/12/19 24 08/12/2023 LIPID PANEL HDL chol 67 mg/dL 35-60 high Not Available [facility] (Lab) [address] [facility], [place], [address], 08/12/2023 17:51:10 08/12/19 24 08/12/2023 LIPID PANEL chol/HDL ratio 5 -4.44 high Not Available [facility] (Lab) [address] [facility], [place], [address], 08/12/2023 17:51:10 08/12/19 24 08/12/2023 LIPID PANEL LDL (calculated) 208 mg/dL -130 high Not Available [facility] (Lab) [address] [facility], [place], [address], 08/12/2023 17:51:10 08/12/19 24 08/12/2023 TSH TSH 1.43 uIU/m L 0.3600 -3.740 0 Not Available [facility] (Lab) [address] [facility], [place], [address], 08/12/2023 17:51:11 08/12/19 24 08/12/2023 MAGNE SIUM magnesium 1.9 mg/dL 1.8-2. 4 Not Available [facility] (Lab) [address] [facility], [place], [address], 08/12/2023 17:51:11 09/06/19 24 09/06/2023 COMPR EHENS BERNARD METAB OLIC PANEL sodium 137 mmol/ L 136-14 5 Not Available [facility] (Lab) [address] [facility], [place], [address], 09/06/2023 16:45:04 09/06/19 24 09/06/2023 COMPR EHENS BERNARD METAB OLIC PANEL potassium 3.9 mmol/ L 3.5-5. 1 Not Available [facility] (Lab) [address] [facility], [place], [address], 09/06/2023 16:45:04 09/06/19 24 09/06/2023 COMPR EHENS BERNARD METAB OLIC PANEL chloride 99 mmol/ L 98.0-1 07.0 Not Available [facility] (Lab) [address] [facility], [place], [address], 09/06/2023 16:45:04 09/06/19 24 09/06/2023 COMPR EHENS BERNARD METAB OLIC PANEL total CO2 30 mmol/ L 21-32 Not Available [facility] (Lab) [address] [facility], [place], [address], 09/06/2023 16:45:04 09/06/19 24 09/06/2023 COMPR EHENS BERNARD METAB OLIC PANEL anion gap 11.9 mmol/ L 5.0-15 .0 Not Available [facility] (Lab) [address] [facility], [place], [address], 09/06/2023 16:45:04 09/06/19 24 09/06/2023 COMPR EHENS BERNARD METAB OLIC PANEL glucose 112 mg/dL 70-120 Not Available [facility] (Lab) [address] [facility], [place], [address], 09/06/2023 16:45:04 09/06/19 24 09/06/2023 COMPR EHENS BERNARD METAB OLIC PANEL BUN 11 mg/dL 7-18 Not Available [facility] (Lab) [address] [facility], [place], [address], 09/06/2023 16:45:04 09/06/19 24 09/06/2023 COMPR EHENS BERNARD METAB OLIC PANEL creatinine 0.9 mg/dL 0.8-1. 3 Not Available [facility] (Lab) [address] [place] [address] [place], [address], 09/06/2023 16:45:04 09/06/19 24 09/06/2023 COMPR EHENS BERNARD METAB OLIC PANEL BUN/creatini ne ratio 12.2 ratio 9-21 Not Available [facility] (Lab) [address] [facility], [place], [address], 09/06/2023 16:45:04 09/06/19 24 09/06/2023 COMPR EHENS BERNARD METAB OLIC PANEL estimated glom filtration rate >60 mL/mi n 60.0- Not Available [facility] (Lab) [address] [place] [address] [place], [address], 09/06/2023 16:45:04 09/06/19 24 09/06/2023 COMPR EHENS BERNARD METAB OLIC PANEL calcium 10.2 mg/dL 8.6-9. 8 high Not Available [facility] (Lab) [address] [place] [address] [place], [address], 09/06/2023 16:45:04 09/06/19 24 09/06/2023 COMPR EHENS BERNARD METAB OLIC PANEL bilirubin, total 0.4 mg/dL 0.2-1. 0 USE OF THIS ASSAY IS NOT RECOM KOLBY D FOR PATIE NTS UNDER GOING TREAT MENT WITH ELTRO MBOPA G DUE TO THE POTEN TIAL FOR FALSE LY ELEVA CINDA RESUL TS. Not Available [facility] (Lab) [address] [facility], [place], [address], 09/06/2023 16:45:04 09/06/19 24 09/06/2023 COMPR EHENS BERNARD METAB OLIC PANEL AST (SGOT) 37 IU/L 15-37 Not Available [facility] (Lab) [address] [facility], [place], [address], 09/06/2023 16:45:04 09/06/19 24 09/06/2023 COMPR EHENS BERNARD METAB OLIC PANEL ALT (SGPT) 99 IU/L 12-78 high Not Available [facility] (Lab) [address] [facility], [place], [address], 09/06/2023 16:45:04 09/06/19 24 09/06/2023 COMPR EHENS BERNARD METAB OLIC PANEL alk phos 82 IU/L 46-116 Not Available [facility] (Lab) [address] [facility], [place], [address], 09/06/2023 16:45:04 09/06/19 24 09/06/2023 COMPR EHENS BERNARD METAB OLIC PANEL total protein 7.9 g/dL 6.4-8. 2 Not Available [facility] (Lab) [address] [facility], [place], [address], 09/06/2023 16:45:04 09/06/19 24 09/06/2023 COMPR EHENS BERNARD METAB OLIC PANEL albumin 4.0 g/dL 3.4-5. 0 Not Available [facility] (Lab) [address] [facility], [place], [address], 09/06/2023 16:45:04 09/06/19 24 09/06/2023 COMPR EHENS BERNARD METAB OLIC PANEL globulin 3.9 g/dL 1.3-3. 5 high Not Available [facility] (Lab) [address] [facility], [place], [address], 09/06/2023 16:45:04 09/06/19 24 09/06/2023 COMPR EHENS BERNARD METAB OLIC PANEL alb/glob ratio 1.0 ratio 1.0-3. 9 Not Available [facility] (Lab) [address] [facility], [place], [address], 09/06/2023 16:45:04 09/06/19 24 09/06/2023 COMPR EHENS BERNARD METAB OLIC PANEL osmolality, calculated 274 mOsm/ kg 272-29 5 Not Available [facility] (Lab) [address] [facility], [place], [address], 09/06/2023 16:45:04 09/06/19 24 09/06/2023 AMYLA SE amylase 53 IU/L 25-115 Not Available [facility] (Lab) [address] [place] [address] [place], [address], 09/06/2023 16:45:06 09/06/19 24 09/06/2023 LIPAS E lipase 31 U/L 16-77 Not Available [facility] (Lab) [address] [place] [address] [place], [address], 09/06/2023 16:45:07 09/06/19 24 09/07/2023 HEPAT ITIS PANEL (4) hep A Ab, IgM Negati ve negati ve Not Available [facility] (Lab) [address] [place] [address] [place], [address], 09/07/2023 07:13:21 09/06/19 24 09/07/2023 HEPAT ITIS PANEL (4) HBsAg screen Negati ve negati ve Not Available [facility] (Lab) [address] [place] [address] [place], [address], 09/07/2023 07:13:21 09/06/19 24 09/07/2023 HEPAT ITIS PANEL (4) hepatitis B core Ab IgM Negati ve Not Available [facility] (Lab) [address] [place] [address] [place], [address], 09/07/2023 07:13:21 09/06/19 24 09/07/2023 HEPAT ITIS PANEL (4) hep C virus Ab Non Reacti ve non reacti ve Perfo rmed at: [facility] [address] [facility], [place] [address] Lab Direc tor: Elgin beltran PhD, Phone : [phone] Not Available [facility] (Lab) [address] [facility], [place], [address], 09/07/2023 07:13:21 09/06/19 24 09/07/2023 HEPAT ITIS PANEL (4) hep A Ab, IgM Negati ve negati ve Not Available [facility] (Lab) [address] [facility], [place], [address], 09/07/2023 07:13:22 09/06/19 24 09/07/2023 HEPAT ITIS PANEL (4) HBsAg screen Negati ve negati ve Not Available [facility] (Lab) [address] [place] [address] [place], [address], 09/07/2023 07:13:22 09/06/19 24 09/07/2023 HEPAT ITIS PANEL (4) hepatitis B core Ab IgM Negati ve Not Available [facility] (Lab) [address] [place] [address] [place], [address], 09/07/2023 07:13:22 09/06/19 24 09/07/2023 HEPAT ITIS PANEL (4) hep C virus Ab Non Reacti ve non reacti ve Perfo rmed at: [facility] [address] [place], [place] [address] [place] [address] Lab Direc tor: Elgin beltran PhD, Phone : [phone] Not Available [facility] (Lab) [address] [place] [address] [place], [address], 09/07/2023 07:13:22 09/06/19 24 09/07/2023 HEPAT ITIS PANEL (4) interpretati on: Commen t . Not infec cinda with HCV unles s early or acute infec tion is suspe cted (whic h may be delay ed in an immun ocomp romis ed indiv idual ), or other evide nce exist s to indic ate HCV infec tion. Perfo rmed at: [facility] n [address] [place] [address] Lab Direc tor: Elgin beltran PhD, Phone : [phone] Not Available [facility] (Lab) [address] [facility], [place], [address], 09/07/2023 07:13:22 03/05/20 22 XR, shoul salud No observ ation record ed. [email or web address] [address], [address], 03/05/2022 11:02:19 03/12/20 22 XR, shoul salud No observ ation record ed. [email or web address] [address], [address], 03/12/2022 10:04:49 08/12/19 24 08/12/2023 elect jean-pierre baxter am No observ ation record ed. ROBIN [address], [address], 08/12/2023 16:51:58 Result Notes None recorded. Problems Name Problem SNOMED Code Status Onset Date Resolution Date Notes Provider Name and Address Organization Details Recorded Time Paresthesia of upper limb 16558652 Active 2021 CARLO MONTOYA [address], [place], [address], [place] [facility] [place] 2 11:01:49 Anxiety 77320454 Active 2021 CARLO MONTOYA [address], [place], [address], [place] [facility] [place] 2 11:02:01 Pain in right arm 690780382 Active 2021 CARLO MONTOYA [address], [place], [address], [place] [facility] [place] 2 15:10:53 Pain in left arm 870924950 Active 2021 CARLO MONTOYA [facility] [address], [place], [address], [place] [facility] [place] 2 15:11:28 Pain in left arm 978338907 Active 2021 Caitlyn Gomez null, [place] - [facility] [place] 2 10:05:10 Syncope 567880209 Active 2022 CARLO MONTOYA [address], [place], [address], [place] [facility] [place] 3 16:30:53 Dizziness 982119398 Active 2023 CARLO MONTOYA [facility] [address], [place], [address], [place] [facility] [place] 4 16:19:42 Irregular heart beat 849112379 Active 2023 CARLO MONTOYA [facility] [address], [place], [address], [place] [facility] [place] 4 16:20:09 Environmental allergy 684646144 Active 2023 CARLO MONTOYA [facility] [address], [place], [address], [place] [facility] [place] 4 16:21:53 Tachycardia 1083973 Active 2023 CARLO MONTOYA [address], [place], [address], [place] [facility] [place] 4 16:36:48 Hypercholester olemia 85097352 Active 2023 CARLO MONTOYA [address], [place], [address], [place] [facility] [place] 4 15:17:02 Liver enzymes level above reference range 889113991 Active 2023 CARLO MONTOYA [address],[facility] [address], [place], [address], [place] - [facility] & [place] 4 15:17:09 Problem Notes None recorded. Procedures Surgical History None recorded. Imaging Results Imaging Date Name Status LastModified by Organization Details LastModified Time 03/05/2022 XR, shoulder completed [address], [address], 03/05/2022 11:02:19 03/12/2022 XR, shoulder completed [email or web address], [address], 03/12/2022 10:04:49 08/12/2023 electrocardiogram completed [address], [address], 08/12/2023 16:51:58 Procedure Notes None recorded. Medical Equipment None Reported. Allergies No known drug allergies Medications Name Sig Start Date Stop Date Status Note LastModified by Organization Details LastModified Time amoxicillin 500 mg capsule TAKE 1 TABLET BY MOUTH THREE TIMES DAILY 02/03 completed Not Available Not Available Not Available promethazin e-DM 6.25 mg-15 mg/5 mL oral syrup TAKE 5 ML NEEDED ORALLY EVERY 6 HRS 10 DAYS 02/03 completed Not Available Not Available Not Available prazosin 1 mg capsule 03/09 completed Not Available Not Available Not Available prednisone 20 mg tablet 3 tablets for 2 days then 2 tablets for 2 days then 1 tablet for 2 days 03/09 completed Not Available Not Available Not Available sertraline 100 mg tablet Take 1 tablet every day by oral route for 30 days. 07/16 completed Not Available Not Available Not Available pseudoephed rine ER 120 mg tablet,exte nded release active Not Available Not Available Not Available fexofenadin e 180 mg tablet 1 tablet every day by oral route. active Not Available Not Available No t Available cephalexin 500 mg capsule Take 1 capsule twice a day by oral route for 10 days. 03/05 completed Not Available Not Available Not Available pantoprazol e 40 mg tablet,mundo yed release 02/03 completed Not Available Not Available Not Available promethazin e 25 mg tablet Take 1 tablet every 4 hours by oral route. 03/05 completed Not Available Not Available Not Available methylpredn isolone 4 mg tablets in a dose pack 02/03 completed Not Available Not Available Not Available ondansetron 4 mg disintegrat ing tablet TAKE 1 TABLET BY MOUTH THREE TIMES DAILY NEEDED FOR NAUSEA 08/12 completed Not Available Not Available Not Available fluticasone propionate 50 mcg/actuati on nasal spray,suspe nsion 08/11 completed Not Available Not Available Not Available Bicillin L-A 1,200,000 unit/2 mL intramuscul ar syringe Inject 1.2 million units by intramusc ular route. 03/05 completed Not Available Not Available Not Available meclizine 25 mg chewable tablet 08/11 completed Not Available Not Available Not Available ProAir HFA 90 mcg/actuati on aerosol inhaler 02/03 completed Not Available Not Available Not Available melatonin 5 mg tablet 07/16 completed Not Available Not Available Not Available Vitals Date Recorded Body height Body mass index (BMI) Body weight Body temperature Oxygen saturation Oxygen saturation in Arterial blood by Pulse oximetry Heart rate Systolic blood pressure Diastolic blood pressure Provider Name and Address Organization Details Last Updated DateTime 3 167.64 cm 21.3 kg/m2 68373.1 9 g 97.1 [degF] 99 % 99 % 76 /min 118 mm[Hg] 68 mm[Hg] Jeannie Lane [facility] & [place] 3 15:38:09 Date Recorded Body temperature Oxygen saturation Oxygen saturation in Arterial blood by Pulse oximetry Heart rate Systolic blood pressure Diastolic blood pressure Provider Name and Address Organization Details Last Updated DateTime 4 97.3 [degF] 99 % 99 % 86 /min 122 mm[Hg] 70 mm[Hg] [facility] [place] 4 16:02:48 Date Recorded Body height Body mass index (BMI) Body weight Body temperature Oxygen saturation Oxygen saturation in Arterial blood by Pulse oximetry Heart rate Systolic blood pressure Diastolic blood pressure Provider Name and Address Organization Details Last Updated DateTime 4 172.72 cm 25.2 kg/m2 51994.3 3 g 97.4 [degF] 97 % 97 % 72 /min 112 mm[Hg] 68 mm[Hg] Caitlyn Lane [facility] & [place] 4 14:31:22 Date Recorded Body height Body mass index (BMI) Body weight Body temperature Oxygen saturation Oxygen saturation in Arterial blood by Pulse oximetry Heart rate Systolic blood pressure Diastolic blood pressure Provider Name and Address Organization Details Last Updated DateTime 4 172.72 cm 24.3 kg/m2 63726.7 8 g 97.9 [degF] 96 % 96 % 68 /min 108 mm[Hg] 70 mm[Hg] Caitlyn Lane [facility] & [place] 4 13:15:54 Social History Question Answer Notes LastModified by Organizat ion Details LastModified Time Tobacco Smoking Status Never Smoker Brigida orozco SACHA Lane [facility] & [place] 02/03/2022 16:33:41 Do You Have An Advance Directive? No Information not available 03/05/2022 Are You Blind Or Do You Have Difficulty Seeing? No Information not available 02/03/2022 Are You Deaf Or Do You Have Serious Difficulty Hearing? No [email or web address] Information not available 07/16/2022 What Was The Date Of Your Most Recent Tobacco Screening? 02/09/2022 [email or web address] Information not available 03/05/2022 Are You Passively Exposed To Smoke? No [email or web address] Information no t available 03/05/2022 Do You Use Any Illicit Or Recreational Drugs? No Information not available 02/03/2022 Do You Or Have You Ever Used Any Other Forms Of Tobacco Or Nicotine? No [email or web address] Information not available 07/16/2022 Sex: Male Functional Status Question Answer Note LastModified by Organization D etails LastModified Time What is your exercise level? Moderate [email or web address] Information not available 03/05/2022 Mental Status None recorded. Family History Relationship Description Onset Age of this Age Resolved Age Notes LastModified by Organization Details LastModified Time Father No current problems or disability [email or web address] Not available 02/03 16:33:16 Mother No current problems or disability [email or web address] Not available 02/03 16:33:16 Medical History Condition Response Mental Illness Y Headaches Y Immunizations Vaccine Type Date Status Note Provider Nam e and Address Organization Details Recorded Time varicella 11/08/2007 completed Brigida Workman null, [place] [facility] [place] [facility] [place] 03/09/2022 14:42:20 DTP-Hib 02/09/1996 completed Brigida Workman null, [place] [facility] [place] 03/09/2022 14:42:20 varicella 08/28/1996 completed Brigida Workman null, [place] [facility] 03/09/2022 14:42:20 Tdap 11/08/2007 completed Brigida Workman null, [place] [facility] 03/09/2022 14:42:20 MMR 12/15/1996 completed Brigida Ji null, [place] [facility] 03/09/2022 14:42:20 Hep B, unspecified formulation 1995 completed Brigida Workman null, [place] [facility] 03/09/2022 14:42:20 Hep B, adolescent or pediatric 05/10/1996 completed Brigida Workman [place], [place] [facility] 03/09/2022 14:42:20 OPV 05/10/1996 completed Brigida Workman null, [place] [facility] 03/09/2022 14:42:20 OPV 02/09/1996 completed Brigida Workman null[place] [facility] 03/09/2022 14:42:20 DTaP, unspecified formulation 09/08/1999 completed Brigida Workman [place], [place] [facility] 03/09/2022 14:42:20 MMR 09/08/1999 completed Brigida Workman null, [place] [facility] [place] [facility] & [place] 03/09/2022 14:42:20 IPV 09/08/1999 completed Brigida Workman null, [place] - [facility] - [facility] & [place] 03/09/2022 14:42:20 DTP-Hib 05/10/1996 completed Brigdia Workman null, [place] - [facility] - [facility] & [place] 03/09/2022 14:42:20 DTP-Hib 12/15/1996 completed Brigida Workman null, [place] - [facility] - [facility] & [place] 03/09/2022 14:42:20 Tdap 08/04/2023 completed Caitlyn Gomez null, [place] - [facility] - [facility] & [place] 08/13/2023 14:32:28 Past Encounters Encounter ID Performer Location Encounter Start Date Encounter Closed Date Diagnosis/Indication Diagnosis SNOMED-CT Code Diagnosis ICD10 Code Diagnosis Note [id number] CARLO MONTOYA [place] [address] [address] [place] [place] [address] 02/03/2022 16:00:20 02/03/2022 16:57:33 Influenza-like symptoms 766520795 R68.89 Viral gastritis 18158457 7 A08.4 [id number] CARLO MONTOYA [place] [address] [place] [address] 02/09/2022 14:46:05 02/09/2022 16:07:26 Influenza-like illness 77556376 B34.9 Exposure t o SARS-CoV-2 379085716 Z20.822 Acute pharyngitis 069922 003 J02.9 [id number] CARLO MONTOYAjessica [place] [address] [place] [address] 03/05/2022 10:32:09 03/05/2022 11:37:40 Paresthesia of upper limb 13866298 R20.2 Anxiety 63604324 F41.9 [id number] CARLO MONTOYA [place] [address] [address] [facility] [place] [address] 03/09/2022 14:15:40 03/09/2022 15:08:26 Medication stopped - side effect 170833557 Z92.29 Pain in left arm 4532379 00 M79.602 [id number] Annette Khanna DO [place] [address] [address] [facility] [place] [address] 03/12/2022 08:32:05 03/12/2022 08:32:59 Pain in left arm 462194623 M79.602 [id number] CARLO MONTOYA [place] [address] [address] [facility] [address] 07/16/2022 15:18:28 07/16/2022 16:40:44 Syncope 870368601 R55 Diet poor 373724128 Z72. 4 [id number] Esteban Quan MD [place] [address] [address] [facility] [address] 08/12/2023 16:00:22 08/12/2023 16:31:40 Dizziness 417561096 R42 Irregular heart beat 361 287084 R00.8 Environmental allergy 42 2142153 T78.49XA Tachycardia 7596489 R00. 0 [id number] CARLO MONTOYA [place] [address] [address] [facility] [place] [address] 08/13/2023 14:03:21 08/13/2023 15:16:10 Irregular heart beat 089855101 R00.8 Liver enzy mes level above reference range 910917946 R74.01 Hypercholesterolemia 136 84927 E78.00 Dizziness 653167767 R42 Tachycardia 0099943 R00. 0 [id number] CARLO MONTOYA [place] [address] [address] [facility] [address] 09/06/2023 13:05:03 09/06/2023 14:02:50 Hypercholesterolemia 13584358 E78.00 Liver enzy mes level above reference range 203878479 R74.01 Health Concerns Section Related Observation LastModified by Organization Detai ls LastModified Time None Recorded Concern Status LastModified by Organization Details LastModified Time None Recorded Advance Directives Directive N: Payers Encounter Date Sequence Insurance Name Policy Number Policy Dowell Covered Member ID Dowell Member ID Guarantor Name 03/12/2022 1 [facility] Gerardo Zamora [id number] Gerardo Zamora 07/16/2022 1 [employer] [facility] (MEDICAID HMO) Gerardo Zamora [id number] Gerardo Zamora 07/16/2022 1 [place] [id number] Gerardo Zamora [id number] Gerardo Zamora 08/12/2023 1 [employer] [facility] (MEDICAID HMO) Gerardo Zamora [id number] Gerardo Zamora 08/13/2023 1 [employer] [facility] (MEDICAID HMO) Gerardo Zamora [id number] Gerardo Zamora 09/06/2023 1 [place] [id number] Gerardo Zamora [id number] Gerardo Zamora Notes Date Note Type Note Provider Name and Address Organization Details Recorded Time 07/16/2022 text/html patient presents today to follow-up after hospital evaluation for a syncopal episode. States yesterday passed out. Upon passing out he fell down and struck his head. He has a slight bruise on the left side of the orbit. It is minimal. He had gone quite a few hours without eating when he ended up passing out. Since then he has had no problems. He had no previous episodes of syncope. At today's visit no complaints of headaches or dizziness. In discussing his diet he drinks 8-10 sodas per day instead of eating. CARLO MONTOYA [address] [facility],[address], [place], [address], [facility] - [place] & [place] 07/20/2022 13:16:17 08/12/2023 text/html patient presents the office today for evaluation. He is complaining of having dizziness. Yesterday he had bent forward and when he straightened up he became very dizzy to the point he almost fell. He ended up going to urgent care last evening. They gave him meclizine. He has been taking it today with no improvement. His dizziness occurs when bending forward or with rapid head movement. Denies having any shortness of breath. No chest pain. He states the room feels as though it is spinning. About 6 months ago he did have a syncopal episode. He has been dizzy today. CARLO MONTOYA [address] [place] [address],[address], [place], [address], [facility] - [facility] & [place] 08/13/2023 07:55:07 08/13/2023 text/html patient presents the office today to follow-up after recent lab work. Lab work shows that he has elevated liver testing. He also has a high cholesterol level. Initially saw him for dizziness. He has been referred to Cardiology for evaluation. Did experience reports tachycardia And irregular heart rate.. He has a history of a syncopal episode as well. Lab work demonstrates a very slight increase in liver enzyme. He has no complaints of abdominal pain. No nausea vomiting or diarrhea. No reports of jaundice. CARLO MONTOYA [address] [place] [address],[address], [place], [address], [facility] - [facility] & [place] 08/13/2023 16:18:42 09/06/2023 text/html Patient reports for evaluation and lab work. The patient initially presented for dizziness, labs at that time revealed high cholesterol and high liver enzymes. Cholesterol could not be treated due to liver enzyme levels. Today new labs will be drawn to evaluate liver enzymes, hepatitis panel, amylase, lipase. Today, he is doing well without any symptoms. He denies any dizziness, headache, chest pains, abdominal pains in office today. CARLO MONTOYA [address], [place], [address], [place] [facility] & [place] 09/08/2023 08:05:08
== END 2024-08-26 14:05 | disposition home or self-care (01) ==
PROVIDERS: Nurse Practitioner Family; Emergency Provider Emergency Medicine; PCP Family Medicine
DX: R11.2 Nausea with vomiting, unspecified (principal); R19.7 Diarrhea, unspecified; R10.10 Upper abdominal pain, unspecified; M79.10 Myalgia, unspecified site; R68.83 Chills (without fever)
CPT/HCPCS: 87636; 99283; Q0162

== ENCOUNTER 2025-02-22 17:22 | Emergency (ER) | payer BC, SELFPAY ==
[2025-02-22 17:29] VITALS: BMI 24.3
[2025-02-22 17:30] VITALS: BP 173/83; PULSE 97; RESP 20; TEMP 36.8; O2SAT 98; BMI 23.6
--- NOTE | 2025-02-22 17:32 | ECG_ITS ---
APPROVED REPORT Exam: Resting ECG HR:75 bpm ECG Measurements Heart Rate 75 AXES NV 125 P 19 QRSd 99 QRS 94 QT 360 T 60 QTc 389 Conclusion SINUS RHYTHM WITH OCCASIONAL VENTRICULAR PREMATURE COMPLEXES BORDERLINE RIGHT AXIS DEVIATION [QRS AXIS > 90] INCOMPLETE RIGHT BUNDLE BRANCH BLOCK [90+ ms QRS DURATION, TERMINAL R IN V1/V2, 40+ ms S IN I/aVL/V4/V5/V6] BORDERLINE ECG UNCONFIRMED REPORT Electronically signed by : NICOLE JAIN, 02/22/2025 23:05:08
--- NOTE | 2025-02-22 17:34 | XR_ITS ---
PROCEDURE INFORMATION: Exam: XR Chest Exam date and time: 02/22/2025 5:40 PM Age: 29 years old Clinical indication: Pain; Chest pressure; Additional info: Chest pain TECHNIQUE: Imaging protocol: Radiologic exam of the chest. Views: 1 view. COMPARISON: CR XR CHEST PORTABLE 07/15/2022 7:11 PM FINDINGS: Lungs: Normal pulmonary expansion. Pulmonary vasculature grossly normal. No gross pulmonary infiltrates or edema pattern. Pleural spaces: No pleural effusion. No pneumothorax. Heart/Mediastinum: Heart size normal. No tracheal/mediastinal shift. Bones/joints: No acute osseous abnormalities are identified. IMPRESSION: No acute thoracic process.
[2025-02-22 17:44] VITALS: PULSE 65
[2025-02-22 17:52] LABS: Hematocrit 42.9 % (42.0-52.0); Hemoglobin 14.6 g/dL (14.1-18.0); Immature Granulocytes % 0.1 %; Mean Corpuscular HGB Conc 34.0 g/dL (31.8-35.4); Mean Corpuscular Hemoglobin 29.8 pg (27.0-31.2); Mean Corpuscular Volume 87.6 fl (80-94); Nucleated Red Blood Cells % 0 %; Platelet Count 304 K/mm3 (142-424); Red Blood Count 4.90 M/mm3 (4.60-6.20); Red Cell Distribution Width-SD 39.3 fL; White Blood Count 7.7 K/mm3 (4.8-10.8)
--- NOTE | 2025-02-22 17:53 | ED_ITS ---
<Statement entered by Corrie Workman DO - 02/22/25 23:16> I was consulted by the [facility], and we discussed the complexity of problems being addressed. I approve the treatment and management plan for this patient's care in the emergency department, thus performing a substantial portion of the medical decision making. Corrie Workman DO Discharge Plan Disposition Patient Disposition: Home, Self-Care Prescriptions Prescriptions: New omeprazole 20 mg capsule,delayed release(DR/EC) 20 mg PO DAILY 42 Days Qty: 42 0RF No Action meclizine 25 mg tablet 25 mg PO TID PRN (Reason: dizziness) Qty: 15 0RF fluticasone propionate [Flonase Allergy Relief] 50 mcg/actuation spray,suspension 2 spray intranasal DAILY Qty: 16 0RF Rx Instructions: administer into each nostril daily pseudoephedrine HCl [Sudafed 12 Hour] 120 mg tablet extended release 120 mg PO Q12H PRN (Reason: nasal congestion) Qty: 20 0RF ondansetron 4 mg tablet,disintegrating 4 mg PO Q8H PRN (Reason: nausea and vomiting) Qty: 7 0RF Referrals Follow up/Referrals: Alfred Acevedo MD [Staff Physician, Cardiology] - See instructions Provider,MD Eli [Primary Care Provider, Medical] - See instructions Activity Restrictions/Add. Instructions Additional Instructions/Restrictions: Please follow-up with cardiology clinic, Dr. Acevedo's office for further testing and management of your chest pain. Take the omeprazole for the epigastric tenderness. I believe this will help. If you have any pain or problems please return to the ED Clinical Impressions Clinical Impression: Acid reflux, Chest pain Stand Alone Forms Stand Alone Forms: Work/School Release Instructions Patient Instructions: DI for Gastroesophageal Reflux Disease (GERD), DI for Chest Pain Print Language Print Language: Amharic Discharge ED Provider: Corrie Workman <Geni Espinosa (ED), EMPLOYEE BENEFITS COORDINATOR - Last Filed: 02/22/25 20:13> General Chief Complaint: Chest Pain Stated Complaint: sore chest,abdominal pain Time Seen by Provider: 02/22/25 17:41 Mode of Arrival: Ambulatory Source of Information: Patient Description of Symptoms (Recalled from ER Triage Doc. by RN): patient presents to the ED for Chest and abdominal pain. sergio stated it started wednesday and has been intermittent in nature sense then. Patient stated intermittently, that the pain will radiate up the side of the left neck and he has experienced numbness and tingling down his left arm. History of Present Illness HPI narrative: 29-year-old man presents to the ED today for complaint of chest pain that moves down into his stomach. This started Wednesday night. He says his fingers went numb. This happened again last night. It feels like pressure and sharp pain according to patient. He said he got short of breath earlier today but that is gone. He has no pain right now he said just soreness from his mid chest down to his epigastric area no nausea or vomiting. His pain has no relation to food. He has no meds Related Data Previous Rx's ?Medication ?Instructions ?Recorded fluticasone propionate 50 2 spray intranasal DAILY #16 grams 08/11/23 mcg/actuation nasal spray,suspension (Flonase Allergy Relief) meclizine 25 mg tablet 25 mg PO TID PRN dizziness # 15 tabs 08/11/23 pseudoephedrine HCl 120 mg 120 mg PO Q12H PRN nasal tablet,extended release (Sudafed congestion #20 tabs 12 Hour) ondansetron 4 mg disintegrating 4 mg PO Q8H PRN nausea and 08/26/24 tablet vomiting #7 tabs omeprazole 20 mg capsule,delayed 20 mg PO DAILY 6 week s #42 caps 02/22/25 release Allergies Allergy/AdvReac Type Severity Reaction Status Date / Time No Known Allergies Allergy Verified 08/26/24 13:18 [facility] <Geni Espinosa (ED), EMPLOYEE BENEFITS COORDINATOR - Last Filed: 02/22/25 20:13> [facility] Disclaimer: The information contained in this section may have been updated after the patient was seen, as this information can be updated by other users. Medical History (Updated 02/22/25 @ 18:30 by Geni Espinosa (ED), EMPLOYEE BENEFITS COORDINATOR) No significant past medical history Social History Smoking Status: Never smoker alcohol intake: never current occupational status: employed Travel in the last 8 weeks?: None housing: house Have you lived/traveled outside [place] in past 30 days?: No Contact w/someone who lives/traveled outside [place] past 30 days?: No Exposure to someone with infectious disease in past 14 days?: No Do you have a fever (greater than 100.4 F or 38 C)?: No Have you tested positive for COVID-19?: No Exposed to someone with COVID-19 in past 14 days?: No Do you have a sore throat?: No Do you have a cough?: No Do you have any weakness?: No Do you have any diarrhea?: No Are you experiencing any unusual bleeding?: No Do you have any muscle aches/pain?: No Do you have any abdominal pain?: Yes Are you experiencing loss of taste or smell?: No Other Medical History Have you received the Flu Vaccine for this season: No Have you received the Pneumonia Vaccine: No <Geni Espinosa (ED), EMPLOYEE BENEFITS COORDINATOR - Last Filed: 02/22/25 20:13> ROS Obtained: Yes Systems reviewed as appropriate & no additional complaints except as documented Constitutional Constitutional: Reports as per HPI Physical Exam <Geni Espinosa (ED), EMPLOYEE BENEFITS COORDINATOR - Last Filed: 02/22/25 20:13> General General appearance: alert and in no apparent distress Head Head exam: normocephalic Eye Eye exam: Present PERRL and EOMI ENT ENT exam: Present normal oropharynx and mucous membranes moist Neck Neck exam: Present full ROM and trachea midline Respiratory Respiratory exam: Present normal lung sounds bilaterally Cardiovascular Cardiovascular exam: Present regular rate, normal rhythm, normal heart sounds, +S1 and +S2 Abdominal Exam Abdominal exam: Present soft and normal bowel sounds Comment: Nontender Extremities Exam Extremities exam: Present normal inspection, full ROM and normal capillary refill Neurological Exam Neurological exam: Present alert, oriented X3 and normal gait Skin Skin exam: Present warm, dry and intact HEART Score <Geni Espinosa (ED), EMPLOYEE BENEFITS COORDINATOR - Last Filed: 02/22/25 20:13> HEART Score HEART Score assessment performed?: Yes History (anamnesis): Slightly suspicious ECG: Normal Age: <45 years Risk factors: 1-2 risk factors Troponin: </= normal limit HEART Score: 1 <Corrie Workman DO - Last Filed: 02/22/25 23:16> HEART Score HEART Score: 1 Critical Care <Geni Espinosa (ED), EMPLOYEE BENEFITS COORDINATOR - Last Filed: 02/22/25 20:13> Critical Care Time Critical Care Time: No Medical Decision Making <Geni Espinosa (ED), EMPLOYEE BENEFITS COORDINATOR - Last Filed: 02/22/25 20:13> Miguel Inquiry Pt receiving controlled substance: No Miguel was queried for this patient: No Vital Signs Vital Signs: 02/22/25 17:30 02/22/25 17:44 02/22/25 18:06 Temperature 98.2 F 98.2 F Temperature Source Oral Oral Pulse Rate 65 68 Pulse Rate [Right Radial] 97 H Respiratory Rate 20 15 Blood Pressure 117/70 Blood Pressure [Right Arm] 173/83 H Blood Pressure Mean [Right Arm] 113 Blood Pressure Source Automatic Cuff Blood Pressure Source [Right Arm] Automatic Cuff Blood Pressure Position Sitting Blood Pressure Position [Right Arm] Sitting 02 Sat by Pulse Oximetry 98 97 Oxygen Delivery Method Room Air Room Air 02/22/25 18:34 Temperature 98.0 F Temperature Source Oral Pulse Rate 63 Pulse Rate [Right Radial] Respiratory Rate 15 Blood Pressure 108/63 L Blood Pressure [Right Arm] Blood Pressure Mean [Right Arm] Blood Pressure Source Blood Pressure Source [Right Arm] Blood Pressure Position Sitting Blood Pressure Position [Right Arm] 02 Sat by Pulse Oximetry Oxygen Delivery Method Room Air Lab Data Labs: Lab Results 02/22/25 17:40: WBC 7.7, RBC 4.90, Hgb 14.6, Hct 42.9, MCV 87.6, MCH 29.8, MCHC 34.0, RDW 12.2, Plt Count 304, MPV 10.8 H, Neut % (Auto) 53.2, Lymph % (Auto) 34.8, Sargent % (Auto) 9.2, Eos % (Auto) 2.2, Baso % (Auto) 0.5, Neut # (Auto) 4.1, Lymph # (Auto) 2.7, Sargent # (Auto) 0.7, Eos # (Auto) 0.2, Baso # (Auto) 0.0, Sodium 136, Potassium 4.0, Chloride 100, Carbon Dioxide 26, Anion Gap 14.0, BUN 14, Creatinine 0.90, Estimated Creat Clear 120, Estimated GFR 100, Est GFR ( Amer) 121, Glucose 105 H, Calcium 9.9, Magnesium 1.7, Total Bilirubin 0.5, AST 32, ALT 56, Alkaline Phosphatase 77, Troponin I < 0.01, Total Protein 7.6, Albumin 4.6, Globulin 3.0, Albumin/Globulin Ratio 1.5, Lipase 96 02/22/25 17:40 02/22/25 17:40 Response Orders (Tests/Meds): ED MEDICATIONS Discontinued Medications Generic Name Dose Route Start Last Admin Trade Name [place] PRN Reason Stop Dose Admin Famotidine 20 mg 02/22/25 17:50 02/22/25 17:57 Famotidine 20mg/2ml Vial IV 02/22/25 17:51 20 mg ONCE ONE Administration Ketorolac Tromethamine 30 mg 02/22/25 17:50 02/22/25 17:57 Ketorolac 30mg/Ml Vial IV 02/22/25 17:51 30 mg ONCE ONE Administration Sodium Chloride 8 ml 02/22/25 17:50 02/22/25 17:57 Sodium Chloride 0.9% 10ml Vial IV 03/24/25 17:49 8 ml NEEDED PRN Administration dilute pepcid ORDERS Category Date Time Status XR chest portable Stat Exams 02/22/25 17:34 Completed Complete Blood Count Auto Diff Stat Lab 02/22/25 17:40 Completed Comprehensive Metabolic Panel Stat Lab 02/22/25 17:40 Completed Lipase Stat Lab 02/22/25 17:40 Completed Magnesium Stat Lab 02/22/25 17:40 Completed Troponin I Stat Lab 02/22/25 17:40 Completed MDM Narrative Medical Decision Narrative: patient is a 29-year-old male presenting to the emergency department for evaluation of chest pain down into his epigastric area, patient says it feels like pressure and soreness but he has no pain right now. Patient is hemodynamically stable and nontoxic-appearing upon arrival, afebrile. Differential diagnosis includes ACS, reflux, esophagitis. Workup will be conducted with hematologic labs, specific imaging, provocative tests. Initial inventions include crystalloid bolus, analgesics. Initial workup reviewed by me hematologic labs are remarkable for White cell count of 9.3 white blood cell count normal white count 7.7, normal troponin 0.01. Patient and I had a discussion about the pain and having the chest pain further worked up with chest pain clinic. I also discussed the epigastric discomfort may possibly be reflux related. Patient safe for discharge home. <Corrie Workman, DO - Last Filed: 02/22/25 23:16> Vital Signs Vital Signs: 02/22/25 17:30 02/22/25 17:44 02/22/25 18:06 Temperature 98.2 F 98.2 F Temperature Source Oral Oral Pulse Rate 65 68 Pulse Rate [Right Radial] 97 H Respiratory Rate 20 15 Blood Pressure 117/70 Blood Pressure [Right Arm] 173/83 H Blood Pressure Mean [Right Arm] 113 Blood Pressure Source Automatic Cuff Blood Pressure Source [Right Arm] Automatic Cuff Blood Pressure Position Sitting Blood Pressure Position [Right Arm] Sitting 02 Sat by Pulse Oximetry 98 97 Oxygen Delivery Method Room Air Room Air 02/22/25 18:34 Temperature 98.0 F Temperature Source Oral Pulse Rate 63 Pulse Rate [Right Radial] Respiratory Rate 15 Blood Pressure 108/63 L Blood Pressure [Right Arm] Blood Pressure Mean [Right Arm] Blood Pressure Source Blood Pressure Source [Right Arm] Blood Pressure Position Sitting Blood Pressure Position [Right Arm] 02 Sat by Pulse Oximetry Oxygen Delivery Method Room Air Lab Data Lab results reviewed: Yes I reviewed the patient's lab results. Labs: Lab Results 02/22/25 17:40: WBC 7.7, RBC 4.90, Hgb 14.6, Hct 42.9, MCV 87.6, MCH 29.8, MCHC 34.0, RDW 12.2, Plt Count 304, MPV 10.8 H, Neut % (Auto) 53.2, Lymph % (Auto) 34.8, Sargent % (Auto) 9.2, Eos % (Auto) 2.2, Baso % (Auto) 0.5, Neut # (Auto) 4.1, Lymph # (Auto) 2.7, Sargent # (Auto) 0.7, Eos # (Auto) 0.2, Baso # (Auto) 0.0, Sodium 136, Potassium 4.0, Chloride 100, Carbon Dioxide 26, Anion Gap 14.0, BUN 14, Creatinine 0.90, Estimated Creat Clear 120, Estimated GFR 100, Est GFR ( Amer) 121, Glucose 105 H, Calcium 9.9, Magnesium 1.7, Total Bilirubin 0.5, AST 32, ALT 56, Alkaline Phosphatase 77, Troponin I < 0.01, Total Protein 7.6, Albumin 4.6, Globulin 3.0, Albumin/Globulin Ratio 1.5, Lipase 96 Response Orders (Tests/Meds): ED MEDICATIONS Discontinued Medications Generic Name Dose Route Start Last Admin Trade Name Freq PRN Reason Stop Dose Admin Famotidine 20 mg 02/22/25 17:50 02/22/25 17:57 Famotidine 20mg/2ml Vial IV 02/22/25 17:51 20 mg ONCE ONE Administration Ketorolac Tromethamine 30 mg 02/22/25 17:50 02/22/25 17:57 Ketorolac 30mg/Ml Vial IV 02/22/25 17:51 30 mg ONCE ONE Administration Sodium Chloride 8 ml 02/22/25 17:50 02/22/25 17:57 Sodium Chloride 0.9% 10ml Vial IV 03/24/25 17:49 8 ml NEEDED PRN Administration dilute pepcid ORDERS Category Date Time Status XR chest portable Stat Exams 02/22/25 17:34 Completed Complete Blood Count Auto Diff Stat Lab 02/22/25 17:40 Completed Comprehensive Metabolic Panel Stat Lab 02/22/25 17:40 Completed Lipase Stat Lab 02/22/25 17:40 Completed Magnesium Stat Lab 02/22/25 17:40 Completed Troponin I Stat Lab 02/22/25 17:40 Completed MDM Narrative Medical Decision Narrative: patient is a 29-year-old male presenting to the emergency department for evaluation of chest pain down into his epigastric area, patient says it feels like pressure and soreness but he has no pain right now. Patient is hemodynamically stable and nontoxic-appearing upon arrival, afebrile. Differential diagnosis includes ACS, reflux, esophagitis, pneumonia, pleural effusion, pneumothorax, amongst others.. Workup will be conducted with hematologic labs, specific imaging, provocative tests. Initial inventions include crystalloid bolus, analgesics. Initial workup reviewed by me hematologic labs are remarkable for White cell count of 9.3 white blood cell count normal white count 7.7, normal troponin 0.01. Lipase normal. Chest x-ray was reviewed and interpreted by myself and showed no acute acute for consolidation, pneumothorax, pleural effusion or other acute cardiopulmonary process. Patient and I had a discussion about the pain and having the chest pain further worked up with chest pain clinic. I also discussed the epigastric discomfort may possibly be reflux related. Patient safe for discharge home.
[2025-02-22] MEDS: KETOROLAC 30MG/ML VIAL 30 MG IV (17:57)
[2025-02-22] MEDS: FAMOTIDINE 20MG/2ML VIAL 20 MG IV (17:57)
[2025-02-22] MEDS: SODIUM CHLORIDE 0.9% 10ML VIAL 8 ML IV (17:57)
[2025-02-22 18:04] LABS: Alanine Aminotransferase 56 U/L (12-78); Albumin Level 4.6 g/dl (3.5-5.0); Albumin/Globulin Ratio 1.5 (1.1-1.8); Alkaline Phosphatase 77 U/L (38-126); Anion Gap 14.0 mEq/L (5-15); Aspartate Amino Transferase 32 U/L (17-59); Bilirubin,Total 0.5 mg/dl (0.2-1.3); Blood Urea Nitrogen 14 mg/dl (9-20); Calcium 9.9 mg/dl (8.4-10.2); Carbon Dioxide 26 mmol/L (22.0-30.0); Chloride 100 mmol/L (98-107); Creatinine Clearance Estimated 120 mL/min (50-200); Creatinine,Serum 0.90 mg/dl (0.66-1.25); Estimated Glomerular Filt Rate 100 ml/min (>60); GFR (African American) 121 ML/MIN (>60); Globulin 3.0 g/dL (1.3-3.2); Glucose 105 mg/dl (74-100); Lipase 96 U/L (23-300); Magnesium 1.7 mg/dl (1.6-2.3); Potassium 4.0 mmoL/L (3.5-5.1); Sodium 136 mmol/L (136-145); Total Protein,Serum 7.6 g/dl (6.3-8.2)
[2025-02-22 18:06] VITALS: BP 117/70; PULSE 68; RESP 15; TEMP 36.8; O2SAT 97
--- NOTE | 2025-02-22 18:09 | PC.NURSE ---
I spoke to Hunter in lab, the troponin has seven minutes until complete.
[2025-02-22 18:17] LABS: Troponin I < 0.01 ng/ml (0.00-0.034)
--- NOTE | 2025-02-22 18:24 | PC.NURSE ---
provider to bedside to discuss results
[2025-02-22 18:34] VITALS: BP 108/63; PULSE 63; RESP 15; TEMP 36.7; O2SAT 100
== END 2025-02-22 18:34 | disposition home or self-care (01) ==
PROVIDERS: Nurse Practitioner; Emergency Provider Student in an Organized Health Care Education/Training Program
DX: R07.9 Chest pain, unspecified (principal); R10.816 Epigastric abdominal tenderness; K21.9 Gastro-esophageal reflux disease without esophagitis
CPT/HCPCS: 71045; 80053; 83690; 83735; 84484; 85025; 93005; 96374; 96375; 99285; J1308; J1885